=== PATIENT | female | born 1960 | race Caucasian/White ===

== ENCOUNTER → 2017-10-27 08:13 | Outpatient (CLI) | payer OTHER, SELFPAY ==
--- NOTE | 2017-10-27 08:30 | MM_ITS ---
MM Dig screening mamm BI w/CAD CAD Screening ORDERING PHYSICIAN : Tyrone Valdez MD PATIENT AGE: 57 years GENDER: Female COMPARISON: Previous mammograms: January 2013, February 2014, February and January 2010 INDICATION: Routine screening patient does take estrogen no new complaints noncontributory family history TECHNIQUE: Standard CC and MLO images were obtained. R2 CAD reviewed. FINDINGS: moderate breast density bilaterally with no dominant mass nor suspicious calcifications RIGHT BREAST:No significant interval change. Follow-up one year LEFT BREAST:No significant new findings. Follow-up in one year adequate Slight additional density at the central left breast on cc view appear stable since 2013 and even dates back to 2010 & 2009 exam IMPRESSION: Stable bilateral mammogram with no significant new findings. BI-RADS Category: 2 Benign Finding(s) RECOMMENDED FOLLOW-UP: 1YR - 1 YEAR FOLLOW-UP (A letter has been sent to the patient regarding results of the study.)
== END ==
PROVIDERS: Family Provider Internal Medicine Adolescent Medicine; PCP Internal Medicine Adolescent Medicine; Visit Provider Nurse Practitioner Obstetrics & Gynecology
DX: Z12.31 Encounter for screening mammogram for malignant neoplasm of breast (principal)
CPT/HCPCS: 77067

== ENCOUNTER → 2019-04-30 08:31 | Outpatient (CLI) | payer OTHER, SELFPAY | PROVIDERS: PCP Internal Medicine Adolescent Medicine; Visit Provider Nurse Practitioner Family | DX: Z12.31 Encounter for screening mammogram for malignant neoplasm of breast (principal) | CPT/HCPCS: 77067 ==

== ENCOUNTER → 2020-05-20 08:11 | Outpatient (CLI) | payer OTHER, SELFPAY ==
--- NOTE | 2020-05-20 08:13 | MM_ITS ---
PROCEDURE: MM DIG SCREENING MAMM BI W/CAD Digital Breast Tomosynthesis Included CLINICAL INDICATION: SCREENING There is no personal or family history of breast cancer. COMPARISON: MG DMSB DIG MAMM-SCREEN [place] from 08/16/2016 MG SCBI MM Dig screening mamm BI w/CAD from 10/27/2017 MG DIG MAMM-SCREEN [place] from 04/30/2019 TECHNIQUE: Standard CC and MLO images and 3D Tomosynthesis was obtained. R2 CAD reviewed. FINDINGS: Moderate scattered fibroglandular densities are seen throughout both breasts and the findings are bilateral and symmetrical. There is no new or suspicious lesion in either breast and no suspicious microcalcifications. IMPRESSION: Fibrofatty parenchyma with no suspicious lesions seen BI-RAD Category: 1 Negative FOLLOW-UP: 1YR 1 Year Follow-up (A letter has been sent to the patient regarding results of the study.) Dictated by: Dr. Alphonse Lee MD 05/20/2020 13:10 Dr. Alphonse Lee MD in [place] 05/20/2020 13:10
== END ==
PROVIDERS: PCP Nurse Practitioner Family; Visit Provider Nurse Practitioner Family
DX: Z12.31 Encounter for screening mammogram for malignant neoplasm of breast (principal)
CPT/HCPCS: 77063; 77067

== ENCOUNTER → 2021-05-22 07:50 | Outpatient (CLI) | payer OTHER, SELFPAY ==
--- NOTE | 2021-05-22 07:53 | MM_ITS ---
PROCEDURE: MM DIG SCREENING MAMM BI W/CAD Digital Breast Tomosynthesis Included CLINICAL INDICATION: SCREENING COMPARISON: MG SCBI MM Dig screening mamm BI w/CAD from 10/27/2017 MG DIG MAMM-SCREEN [place] from 04/30/2019 MG MM DIG SCREENING MAMM BI W/CAD from 05/20/2020 TECHNIQUE: Standard CC and MLO images and 3D Tomosynthesis was obtained. R2 CAD reviewed. FINDINGS: The breasts are heterogeneously dense which may obscure small masses. No suspicious appearing mass, malignant-appearing microcalcification, architectural distortion, or skin thickening. IMPRESSION: No evidence of malignancy with no significant change BI-RAD Category: FOLLOW-UP: (A letter has been sent to the patient regarding results of the study.) Dictated by: Tab Masrhall MD 05/28/2021 17:39 Tab Marshall MD in [place] 05/28/2021 17:39
== END ==
PROVIDERS: PCP Nurse Practitioner Family; Visit Provider Nurse Practitioner Family
DX: Z12.31 Encounter for screening mammogram for malignant neoplasm of breast (principal)
CPT/HCPCS: 77063; 77067

== ENCOUNTER → 2021-11-19 10:09 | Outpatient (CLI) | payer OTHER, SELFPAY ==
--- NOTE | 2021-11-19 10:14 | XR_ITS ---
FINAL REPORT CLINICAL HISTORY: swelling and pain of left lower leg post fall this am FINDINGS: LEFT ANKLE: Three views of the left ankle were obtained. There is an oblique mildly displaced fracture of the distal fibula. There is prominent soft tissue swelling over the lateral malleolus up to 1.3 cm. There is an osteophyte along the plantar calcaneus. IMPRESSION: Mildly displaced distal fibular fracture with associated soft tissue swelling. Reviewed, Interpreted and Dictated by Kwesi Hernandez MD Transcribed by Pop Licona Authenticated by Kwesi Hernandez MD on 11/19/2021 11:02:[address] [facility]
--- NOTE | 2021-11-19 10:14 | XR_ITS ---
FINAL REPORT CLINICAL HISTORY: swelling and pain of left lower leg post fall this am FINDINGS: Two views of the left tibia-fibula were obtained. There is a mildly displaced oblique fracture of the distal fibula. There is 6 mm of posterior displacement of the distal fracture fragment. There is prominent soft tissue swelling. IMPRESSION: Displaced oblique fracture of the distal fibula. Reviewed, Interpreted and Dictated by Kwesi Hernandez MD Transcribed by Pop Licona Authenticated by Kwesi Hernandez MD on 11/19/2021 11:02:38 AM [facility]
--- NOTE | 2021-11-19 13:21 | CT_ITS ---
FINAL REPORT CLINICAL HISTORY: ankle fracture, FALL COMPARISON: Plain films from the same day FINDINGS: CT RIGHT ANKLE WITHOUT CONTRAST Technique: Axial images through the right ankle were performed by computed tomography. Sagittal and coronal reconstruction images were performed. This study was performed with techniques to keep radiation doses as low as reasonably achievable (ALARA). Individualized dose reduction techniques using automated exposure control or adjustment of mA and/or kV according to the patient's size were employed. There is an oblique displaced fracture of the distal fibula. There is 7 mm of posterior displacement of the distal fracture fragment. There is a transverse and vertical displaced fracture of the posterior malleolus. There is 6 mm of posterior displacement laterally. Fracture lines extend to the medial malleolus. The mortise is intact. IMPRESSION: Trimalleolar fracture with preservation of the mortise but displacement of the lateral and the posterior malleolar fragments. The medial malleolar and posterior malleolar fractures are not well seen on plain films. Reviewed, Interpreted and Dictated by Kwesi Hernandez MD Transcribed by Pop Licona Authenticated by Kwesi Hernandez MD on 11/19/2021 03:59:[address] [facility]
== END ==
PROVIDERS: PCP Nurse Practitioner Family; Visit Provider Nurse Practitioner Family
DX: M25.572 Pain in left ankle and joints of left foot (principal); G89.11 Acute pain due to trauma
CPT/HCPCS: 73590; 73610; 73700

== ENCOUNTER → 2021-11-21 11:10 | Outpatient (CLI) | payer OTHER, SELFPAY ==
[2021-11-21 11:40] LABS: Basophils # 0.1 K/mm3 (0-0.2); Basophils % 0.6 % (0.1-2.0); Eosinophils # 0.2 K/mm3 (0.0-0.4); Eosinophils % 2.7 % (0.1-12.0); Hematocrit 46.4 % (37.0-47.0); Hemoglobin 15.2 g/dL (12.2-16.2); Lymphocytes # 2.9 K/mm3 (0.7-4.5); Lymphocytes % 32.4 % (10-50); Mean Corpuscular HGB Conc 32.7 g/dL (31.8-35.4); Mean Corpuscular Hemoglobin 28.6 pg (27.0-31.2); Mean Corpuscular Volume 87.4 fl (81-99); Mean Platelet Volume 7.7 fl (7.4-10.4); Monocytes # 0.5 K/mm3 (0.1-1.0); Monocytes % 6.1 % (1.7-9.3); Neutrophils # 5.1 K/mm3 (1.8-7.8); Neutrophils % 58.3 % (37.0-80.0); Platelet Count 371 K/mm3 (142-424); Red Cell Distribution Width 13.3 % (11.5-17.5); White Blood Count 8.8 K/mm3 (4.8-10.8)
--- NOTE | 2021-11-21 11:49 | ECG_ITS ---
APPROVED REPORT Exam: Resting ECG HR:88 bpm ECG Measurements Heart Rate 88 AXES ME 134 P 82 QRSd 85 QRS 86 QT 340 T 56 QTc 386 Conclusion SINUS RHYTHM POSSIBLE LEFT ATRIAL ENLARGEMENT [-0.1mV P-WAVE IN V1/V2] BORDERLINE ECG UNCONFIRMED REPORT Electronically signed by : Carmelo Ayala MD 11/21/2021 18:38:42
[2021-11-21 12:03] LABS: Chloride 104 mmol/L (98-107); Potassium 4.4 mmoL/L (3.5-5.1); Sodium 138 mmol/L (136-145)
[2021-11-21 12:06] LABS: Anion Gap 11.4 mEq/L (5-15); Blood Urea Nitrogen 13 mg/dl (7-17); Carbon Dioxide 27 mmol/L (22.0-30.0); Estimated Glomerular Filt Rate 73 ml/min (>60); GFR (African American) 89 ML/MIN (>60)
[2021-11-21 12:07] LABS: Calcium 9.9 mg/dl (8.4-10.2); Glucose 92 mg/dl (74-100)
== END ==
PROVIDERS: PCP Internal Medicine Adolescent Medicine; Referring Provider Orthopaedic Surgery; Visit Provider Orthopaedic Surgery
DX: Z01.812 Encounter for preprocedural laboratory examination (principal); Z11.52 Encounter for screening for COVID-19; S82.839A Other fracture of upper and lower end of unspecified fibula, initial encounter for closed fracture
CPT/HCPCS: 80048; 85025; 93005; C9803; U0003; U0005

== ENCOUNTER 2021-11-23 13:10 | Day surgery (SDC) | payer OTHER, SELFPAY ==
[2021-11-20 12:02] VITALS: BMI 25.8
[2021-11-23] VITALS (11 sets, daily range): BP systolic 104–144; BP diastolic 54–88; PULSE 79–124; RESP 14–18; TEMP 36.6–43; O2SAT 92–99
--- NOTE | 2021-11-23 16:28 | HMH.ANESCL ---
[facility] Anesthesia Checklist - Patient Identification Patient Identification: Arm Band - Structural Data Admitted From: Home Planned Operative Procedure/s: ORIF Left Ankle Consent for Planned Operative Procedure(s) Verified: Yes Verified Documents: Surgical Consent, History and Physical - NPO Status Verified Time NPO: 00:00 - Additional verifications Anesthesia Reactions: No Hx Blood Transfusions: No Blood Transfusion Reaction: No - Airway Assessment C-Spine Mobility Assessed: Yes (mp2) TMJ Mobility Assessed: Yes Dentition: Good Dentition - Neurological Assessment Level of Consciousness: Awake, Alert - Anesthesia Plan Anesthesia Risk discussed: Yes Anesthesia Plan: Verified ASA Class: I Anesthesia Type: General [facility] History I have reviewed the patient's past medical history: Yes Medical History: Denies:: Cancer, Diabetes Mellitus Type 1, Diabetes Mellitus Type 2, Internal Pacemaker, MRSA, Seizures *Have you ever received a pneumonia vaccine?: No *Have you received a flu vaccine this season?: Yes Other Medical History: Denies: Blood Transfusion Reaction Anesthesia experience/problems:: nac Laterality Cases: Bilateral: Other Other Surgeries: Yes: , Other ( 1992). No: Pacemaker Amputation: No Fractures: No - *Social History Last grade of school completed: High school graduate Smoking Status: Never smoker Alcohol Intake: never Substance Use Type: denies use *Occupational Status:: employed Housing: house Household Members: spouse *Travel in the last 8 weeks: None Family Hx:: Cancer
--- NOTE | 2021-11-23 18:55 | XR_ITS ---
FINAL REPORT CLINICAL HISTORY: LEFT ANKLE ORIF USING C-ARM GUIDANCE FINDINGS: FLUOROSCOPY LESS THAN 1 HOUR PROCEDURE: CT guided ORIF of the left ankle. Four spot films were obtained. Please see operative report. Reviewed, Interpreted and Dictated by Mars Gonzalez III, MD Transcribed by Courtney Yadav Authenticated by Mars Gonzalez III, MD on 11/24/2021 03:04:[address] [facility]
--- NOTE | 2021-11-23 19:29 | HMH.ANESI ---
[facility] Anesthesia Record Part I Intake, IV Amount: 2,000 Estimated blood loss (mL): 10 Urine output (mL): 0 Blood Pressure: 104/62 SaO2: 92 Pulse Rate: 79 Respiratory Rate: 16 Temperature: 97.9 F Patient is:: Drowsy, Stable Stable to PACU at:: 19:25
--- NOTE | 2021-11-23 19:52 | SUR.PHASEI ---
1952- detailed report given to nereida otero in post op. pt in stable condition
--- NOTE | 2021-11-23 20:22 | HMH.OPNOTE ---
Date of procedure: 11/23/21 Pre-op Diagnosis:: Closed, comminuted, displaced trimalleolar fracture, left ankle Post-op Diagnosis:: Same Procedure performed:: Open reduction and internal fixation, left ankle Surgeon:: Deny Casper MD Garbage Collection Supervisor(s):: Kassi Franco PA-C [employer] HISTORY TEACHER:: Benja Atwood Anesthesia: GETA Estimated blood loss (mL): 10 Clinical Note:: Patient is a lhlyn-[id number]-arg female who sustained a closed, comminuted, displaced and unstable trimalleolar fracture of the left ankle following a mechanical fall. Following evaluation in the office including a CT scan of her left ankle, the lateral malleolus and posterior malleolar fractures are displaced whereas the medial malleolar fracture is nondisplaced. Following a detailed discussion about the management options including both the nonoperative and operative, patient elected for surgical remediation. Surgery is indicated to anatomically reduce and stabilize the fractures in order to relieve the pain and restore/improve the function. Please refer to my office note for full details. Operative findings:: Preoperative imaging findings and diagnosis correlate with the intraoperative findings. There is a displaced Le B type lateral malleolus fracture with comminution and a nondisplaced fracture of the medial malleolus. There is a large displaced posterior malleolus fracture fragments; the posterolateral fragment is a large Volkmann fragment and is displaced superiorly. The posterior medial fragment is part of the comminuted medial malleolus/distal tibia fracture and is nondisplaced. There is no talar shift. The inferior tibiofibular syndesmosis is stable and therefore did not need fixation. Following fixation the fractures, the ankle joint and inferior tibiofibular syndesmosis are noted to be stable. Operative note:: On the day of surgery patient and her family were met in the preoperative area and positively identified. I again reviewed the clinical and imaging findings, diagnosis, management options including both nonsurgical and surgical and the expected results. Given the clinical and radiological findings, I have recommended an open reduction and internal fixation of the distal fibula fracture and posterior malleolar fracture with or without stabilization of the syndesmosis as needed intraoperatively. We've outlined where the incisions would be made on the skin. Risks of surgery discussed include but are not limited to- infection, injury to nerves and blood vessels, injury to tendons, compartment syndrome, DVT/PE, malunion, nonunion, stiffness, CRPS (complex regional pain syndrome- pain, sensory and temperature changes, swelling and stiffness), painful hardware, loss of fixation, arthritis, incomplete relief of pain, incomplete return of function, and likely need for further surgery in future and also the risks of anesthesia including heart attack, stroke, and . We've discussed how there is a small but real possibility of loss of use of the leg, loss of the leg or loss of life itself. We've also explained how additional surgery may be required and specifically discussed about the likely need for syndesmosis screw removal prior to weight bearing. We explained the weight bearing status, immobilization required, the likely need for physical therapy, the possibility of stiffness, chronic pain and we've also discussed the option of nonsurgical treatment. The patient expressed full understanding and asked appropriate questions. All the questions were answered by me and patient verbalized a good understanding. She wished to proceed with surgery as planned. A physical examination was performed and documented. The limb was marked and the consent form was reviewed and signed. Patient understood the risks, agreed to proceed with surgery, signed the consent form and no guarantees or assurances were given or implied. The patient was brought to the operating room, placed supine on the operating table, and
--- NOTE | 2021-11-25 07:19 | HMH.ANESII ---
[facility] Anesthesia Record Part II Discharge Time: 19:55 Destination: [facility] PACU nurse assessment reviewed?: Yes Patient Condition:: Good Anesthesia Complications:: None NONE Swallowing reflex intact?: Yes Cyanosis?: No Blood Pressure: 119/61 Pulse Rate: 102 Temperature: 98.0 F Mental Status: Alert & Oriented Pain level:: 0 Nausea and/or vomitting:: None Intake, IV Amount: 0
[2021-11-25 07:20] VITALS: BP 119/61; PULSE 102; TEMP 36.7
== END 2021-11-23 20:48 | disposition home or self-care (01) ==
LOC: OR 13:12
PROVIDERS: PCP Nurse Practitioner Family; Visit Provider Orthopaedic Surgery
PROC: (CPT 27822; principal; 2021-11-23 12:30)
DX: S82.852A Displaced trimalleolar fracture of left lower leg, initial encounter for closed fracture (principal); W00.0XXA Fall on same level due to ice and snow, initial encounter; Y92.018 Other place in single-family (private) house as the place of occurrence of the external cause
CPT/HCPCS: 27822; 73600; 96374; C1713; C1776; J2405; J2710

== ENCOUNTER → 2021-12-01 09:30 | Outpatient (CLI) | payer OTHER, SELFPAY ==
--- NOTE | 2021-12-01 09:35 | XR_ITS ---
FINAL REPORT CLINICAL HISTORY: left ankle fx 2 weeks ago..pain COMPARISON: November 19, 2021 FINDINGS: LEFT ANKLE Three views were obtained. There are fractures of the distal tibia and fibula with interval postoperative changes from ORIF. There are screw plates with multiple screws. Small calcaneal spurs are seen. IMPRESSION: Distal tibia and fibula fractures with interval postoperative changes. Reviewed, Interpreted and Dictated by Mars Gonzalez III, MD Transcribed by Michelle Walker Authenticated by Mars Gonzalez III, MD on 12/01/2021 11:08:44 AM [facility]
== END ==
PROVIDERS: PCP Internal Medicine Adolescent Medicine; Visit Provider Orthopaedic Surgery
DX: S82.852A Displaced trimalleolar fracture of left lower leg, initial encounter for closed fracture (principal); S99.912A Unspecified injury of left ankle, initial encounter
CPT/HCPCS: 73610

== ENCOUNTER 2021-12-08 14:12 | Outpatient (RCR) | payer OTHER, SELFPAY | END 2021-12-08 15:00 | disposition home or self-care (01) | LOC: PT 14:12 | PROVIDERS: Visit Provider Orthopaedic Surgery | DX: S99.912A Unspecified injury of left ankle, initial encounter (principal); S82.852A Displaced trimalleolar fracture of left lower leg, initial encounter for closed fracture | CPT/HCPCS: 97760 ==

== ENCOUNTER → 2021-12-24 08:32 | Outpatient (CLI) | payer OTHER, SELFPAY ==
--- NOTE | 2021-12-24 08:36 | XR_ITS ---
FINAL REPORT CLINICAL HISTORY: ankle fracture lt f/u COMPARISON: December 01, 2021 FINDINGS: LEFT ANKLE: Three views of the left ankle were obtained. The overlying cast has been removed. There are postoperative changes from ORIF of the distal tibia and fibula. The hardware is stable. There are mild degenerative changes. Calcaneal spurs are present. IMPRESSION: Postoperative changes, stable. Authenticated by Mars Gonzalez III, MD on 12/24/2021 09:57:41 AM [facility]
== END ==
PROVIDERS: PCP Nurse Practitioner Family; Visit Provider Physician Assistant Surgical
DX: S82.892A Other fracture of left lower leg, initial encounter for closed fracture (principal)
CPT/HCPCS: 73610

== ENCOUNTER → 2022-01-07 08:30 | Outpatient (CLI) | payer OTHER, SELFPAY ==
--- NOTE | 2022-01-07 08:42 | XR_ITS ---
FINAL REPORT CLINICAL HISTORY: orif lt ankle COMPARISON: December 24, 2021 FINDINGS: LEFT ANKLE: Three views of the left ankle were obtained. There is a sideplate and screws securing the distal fibula. There is a sideplate and screws securing the posterior distal tibia. The joint spaces and mortise are intact. There is mild soft tissue swelling about the ankle. IMPRESSION: Postoperative changes with soft tissue swelling. Reviewed, Interpreted and Dictated by Kwesi Hernandez MD Transcribed by Pop Licona Authenticated by Kwesi Hernandez MD on 01/07/2022 10:30:27 AM [facility]
== END ==
PROVIDERS: Visit Provider Physician Assistant Surgical
DX: Z09 Encounter for follow-up examination after completed treatment for conditions other than malignant neoplasm (principal); S82.852D Displaced trimalleolar fracture of left lower leg, subsequent encounter for closed fracture with routine healing
CPT/HCPCS: 73610

== ENCOUNTER → 2022-02-04 08:41 | Outpatient (CLI) | payer OTHER, SELFPAY ==
--- NOTE | 2022-02-04 08:45 | XR_ITS ---
FINAL REPORT CLINICAL HISTORY: orif lt ankle post op COMPARISON: January 07, 2022 FINDINGS: LEFT ANKLE: Three views of the left ankle were obtained. There are postoperative changes again noted in the distal tibia and fibula. Screw plates and multiple screws remain in place. There are mild degenerative changes. Calcaneal spurs are noted. There is no soft tissue abnormality. IMPRESSION: Stable postoperative and degenerative changes as above. Reviewed, Interpreted and Dictated by Mars Gonzalez III, MD Transcribed by Brynn Kee Authenticated by Mars Gonzalez III, MD on 02/04/2022 10:20:24 AM [facility]
== END ==
PROVIDERS: PCP Internal Medicine Adolescent Medicine; Visit Provider Orthopaedic Surgery
DX: Z09 Encounter for follow-up examination after completed treatment for conditions other than malignant neoplasm (principal); S82.852D Displaced trimalleolar fracture of left lower leg, subsequent encounter for closed fracture with routine healing; Z98.890 Other specified postprocedural states; Z87.81 Personal history of (healed) traumatic fracture
CPT/HCPCS: 73610

== ENCOUNTER → 2022-02-12 08:44 | Outpatient (CLI) | payer OTHER, SELFPAY ==
--- NOTE | 2022-02-12 08:45 | XR_ITS ---
FINAL REPORT TECHNIQUE: Bone densitometry calculations of the lumbar spine and left hip were obtained. CLINICAL HISTORY: . post menopausal screening FINDINGS: Using L1-4, the bone mineral density of the spine is 0.924 g/cm2, corresponding to T-score of -1.1. Using the left hip, the bone mineral density of the femoral neck is 0.639 g/cm2, corresponding to a T-score of -2.5. NOTE: T-score: Standard deviation compared with peak bone mass of young adult mean. *Following the recommendations of the International Society of Bone Densitometry, classification of hip BMD is based on the lower of two T-scores; total hip or femoral neck. IMPRESSION: Osteoporosis of the proximal left femur with osteopenia of the lumbar spine. Reviewed, Interpreted and Dictated by Mars Gonzalez III, MD Transcribed by Pop Licona Authenticated by Mars Gonzalez III, MD on 02/12/2022 09:52:12 AM [facility]
== END ==
PROVIDERS: PCP Internal Medicine Adolescent Medicine; Visit Provider Orthopaedic Surgery
DX: S82.852A Displaced trimalleolar fracture of left lower leg, initial encounter for closed fracture (principal); Z78.0 Asymptomatic menopausal state
CPT/HCPCS: 77080

== ENCOUNTER → 2022-03-18 08:24 | Outpatient (CLI) | payer OTHER, SELFPAY ==
--- NOTE | 2022-03-18 08:27 | XR_ITS ---
FINAL REPORT CLINICAL HISTORY: fracture follow up COMPARISON: February 04, 2022 FINDINGS: LEFT ANKLE: Three views of the left ankle were obtained. There are postoperative changes of the distal tibia and fibula with screw plates and multiple screws noted. There is mild degenerative change. Calcaneal spurs are noted. There is no soft tissue abnormality. IMPRESSION: Stable postoperative changes as above. Reviewed, Interpreted and Dictated by Mars Gonzalez III, MD Transcribed by Brynn Kee Authenticated and . [facility]
== END ==
PROVIDERS: PCP Internal Medicine Adolescent Medicine; Visit Provider Orthopaedic Surgery
DX: S82.852D Displaced trimalleolar fracture of left lower leg, subsequent encounter for closed fracture with routine healing (principal); Z87.81 Personal history of (healed) traumatic fracture; Z98.890 Other specified postprocedural states
CPT/HCPCS: 73610

== ENCOUNTER → 2022-04-29 08:16 | Outpatient (CLI) | payer OTHER, SELFPAY ==
--- NOTE | 2022-04-29 08:20 | XR_ITS ---
FINAL REPORT CLINICAL HISTORY: ankle fracture COMPARISON: March 18, 2022 FINDINGS: LEFT ANKLE: Three views of the left ankle were obtained. Changes of the distal tibia and fibula with screw plates and multiple screws. There is no acute fracture or dislocation. There are mild degenerative changes. Calcaneal spurs are present. There is no soft tissue abnormality. IMPRESSION: Postoperative change in stable alignment. Reviewed, Interpreted and Dictated by Mars Gonzalez III, MD Transcribed by Pop Licona Authenticated and . [facility]
== END ==
PROVIDERS: PCP Nurse Practitioner Family; Visit Provider Orthopaedic Surgery
DX: Z87.81 Personal history of (healed) traumatic fracture (principal); Z98.890 Other specified postprocedural states
CPT/HCPCS: 73610

== ENCOUNTER → 2022-05-25 07:44 | Outpatient (CLI) | payer OTHER, SELFPAY ==
--- NOTE | 2022-05-25 07:47 | MM_ITS ---
PROCEDURE INFORMATION: Exam: MG Bilateral Screening 3D Mammography Exam date and time: 05/25/2022 7:53 AM Age: 61 years old Clinical indication: Screening examination. No family history of breast cancer. TECHNIQUE: Imaging protocol: Bilateral Screening tomosynthesis and 2D mammography including computer-aided detection (CAD) when performed. COMPARISON: 1. MG MM DIG SCREENING MAMM BI W/CAD 05/22/2021 7:58 AM 2. MG MM DIG SCREENING MAMM BI W/CAD 05/20/2020 8:19 AM 3. MG DIG MAMM-SCREEN [place] 04/30/2019 9:01 AM 4. MG SCBI MM Dig screening mamm BI w/CAD 10/27/2017 8:33 AM FINDINGS: MAMMOGRAPHY: Breast composition: The breasts are heterogeneously dense, which may obscure small masses. Mass: None. Architectural distortion: None. Calcifications: No suspicious calcifications. Asymmetric density: None. Skin thickening: None. Axillary adenopathy: None. IMPRESSION: No mammographic evidence of malignancy. Annual screening is recommended unless otherwise clinically indicated. ASSESSMENT: BI-RADS Category 1: Negative
== END ==
PROVIDERS: PCP Nurse Practitioner Family; Visit Provider Nurse Practitioner Family
DX: Z12.31 Encounter for screening mammogram for malignant neoplasm of breast (principal)
CPT/HCPCS: 77063; 77067

== ENCOUNTER → 2023-05-31 07:49 | Outpatient (CLI) | payer BC, SELFPAY ==
--- NOTE | 2023-05-31 07:53 | MM_ITS ---
PROCEDURE INFORMATION: Exam: MG Bilateral Screening 3D Mammography Exam date and time: 05/31/2023 7:44 AM Age: 62 years old Clinical indication: Screening examination; No personal or family history of breast cancer TECHNIQUE: Imaging protocol: Bilateral Screening tomosynthesis and 2D mammography including computer-aided detection (CAD) when performed. COMPARISON: 1. MG MM DIG SCREENING MAMM BI W/CAD 05/25/2022 7:53 AM 2. MG MM DIG SCREENING MAMM BI W/CAD 05/22/2021 7:58 AM FINDINGS: MAMMOGRAPHY: Breast composition: There are scattered areas of fibroglandular density. Mass: None. Architectural distortion: None. Calcifications: No suspicious calcifications. Asymmetric density: None. Skin thickening: None. Axillary adenopathy: None. IMPRESSION: No mammographic evidence of malignancy. Annual screening is recommended unless otherwise clinically indicated. ASSESSMENT: BI-RADS Category 1: Negative
== END ==
PROVIDERS: PCP Nurse Practitioner Family; Visit Provider Nurse Practitioner Family
DX: Z12.31 Encounter for screening mammogram for malignant neoplasm of breast (principal)
CPT/HCPCS: 77063; 77067

== ENCOUNTER → 2023-08-09 08:57 | Outpatient (CLI) | payer BC, SELFPAY ==
--- NOTE | 2023-08-09 09:02 | XR_ITS ---
FINAL REPORT CLINICAL HISTORY: OSTEOPOROSIS FINDINGS: Using L1-4, the bone mineral density of the spine is 1.049 g/cm2, corresponding to T-score of 0.0. Using the left hip, the bone mineral density of the femoral neck is 0.662 g/cm2, corresponding to a T-score of -1.7. Using the right hip, the bone mineral density of the femoral neck is 0.655 g/cm2, corresponding to a T-score of -1.7. IMPRESSION: Diminished bone mineral density of the lumbar spine and bilateral hips consistent with osteopenia. Reviewed, Interpreted and Dictated by Kwesi Hernandez MD Transcribed by Pop Licona Authenticated and [facility]
== END ==
PROVIDERS: PCP Nurse Practitioner Family; Visit Provider Nurse Practitioner Family
DX: E89.2 Postprocedural hypoparathyroidism (principal); M81.0 Age-related osteoporosis without current pathological fracture
CPT/HCPCS: 77080

== ENCOUNTER 2024-06-07 07:56 | Outpatient (CLI) | payer BC, SELFPAY ==
--- NOTE | 2024-06-07 08:04 | MM_ITS ---
PROCEDURE INFORMATION: Exam: MG Bilateral Screening 3D Mammography Exam date and time: 06/07/2024 7:47 AM Age: 63 years old Clinical indication: Screening examination TECHNIQUE: Imaging protocol: Bilateral Screening tomosynthesis and 2D mammography including computer-aided detection (CAD) when performed. COMPARISON: 1. MG MM DIG SCREENING MAMM BI W/CAD 05/31/2023 7:44 AM 2. MG MM DIG SCREENING MAMM BI W/CAD 05/25/2022 7:53 AM FINDINGS: MAMMOGRAPHY: Breast composition: There are scattered areas of fibroglandular density. Mass: None. Architectural distortion: None. Calcifications: No suspicious calcifications. Asymmetric density: None. Skin thickening: None. Axillary adenopathy: None. IMPRESSION: No mammographic evidence of malignancy. Annual screening is recommended unless otherwise clinically indicated. ASSESSMENT: BI-RADS Category 1: Negative.
== END 2024-06-07 23:59 | disposition home or self-care (01) ==
LOC: RAD 07:57
PROVIDERS: PCP Nurse Practitioner Family; Visit Provider Nurse Practitioner
DX: Z12.31 Encounter for screening mammogram for malignant neoplasm of breast (principal)
CPT/HCPCS: 77063; 77067

== ENCOUNTER 2025-07-08 09:03 | Outpatient (CLI) | payer BC, SELFPAY ==
--- NOTE | 2025-07-08 09:07 | XR_ITS ---
FINAL REPORT TECHNIQUE: Bone densitometry calculations of the lumbar spine and bilateral hips were obtained. CLINICAL HISTORY: SCREENING COMPARISON: 08/09/2023 FINDINGS: Using L1-4, the bone mineral density of the spine is 1.040 g/cm2, corresponding to T-score of -0.1 and a Z score of 1.6. This is within the range of normal, and similar to the prior exam of 2022. Using the left hip, the bone mineral density of the femoral neck is 0.697 g/cm2, corresponding to a T-score of -2.0 and a Z-score of -0.9. This is within the range of osteopenia, and similar to the prior exam of 2022. Using the right hip, the bone mineral density of the femoral neck is 0.687 g/cm?, corresponding to a T-score of -1.5 and a Z-score of 0.0. This is within the range of osteopenia, and similar to the prior exam of 2022. NOTE: T-score: Standard deviation compared with peak bone mass of young adult mean. *Following the recommendations of the International Society of Bone densitometry, classification of hip BMD is based on the lower of two T-scores; total hip or femoral neck. IMPRESSION: 1. Bone mineral density of the lumbar spine within the range of normal. 2. Bone mineral density of the bilateral femoral necks within the range of osteopenia. Reviewed, Interpreted and Dictated by Lyla Schmitt MD Transcribed by Erica Yoon Authenticated and [facility]
--- OUTSIDE RECORDS SUMMARY | 2025-07-08 09:10 | XMS_ITS | Encounter Summary ---
Author Organization [facility] Address [address] [place] [address] Care Team Providers Care Supervisor Extrusion Name Role Phone Carmelo Ayala MD Primary Care Provider [phone] Kristen Uribe Unavailable [phone] Gregoria Ricci MD Unavailable Deja Mcduffie RN Unavailable [phone] Encounter Details Date Type Department Care Team (Late st Contact Info) Description 09/23/2020 Legacy OTTR Encounter Historical OTTR [address] [place] [address] TobinAna [place] [id number] Social History Tobacco Use Types Packs/Day Years Used Date Smoking Tobacco: Never Assessed Comments Unknown Sex and Gender Information Value Date Recorded Sex Assigned at Not on file Legal Sex Female 8:03 PM EDT Gender Identity Not on file Sexual Orientation Not on file documented as of this encounter Miscellaneous Notes * Progress Notes - Kristen Uribe MA - 02/25/2021 11:30 AM EDT Results received for Ms. Uribe Alk Phos Isoenzyme and GGT, saved to ALL DOCs, forwarded to Dr. Spence. * Progress Notes - Kristen Uribe MA - 02/16/2021 10:51 AM EDT Received a message this morning from Ms. Uribe stating that she was told that she would have some orders send over for lab work and they have not been received yet. She ask that they be sent to [facility]. Ms. Uribe had a recent appointment with Dr. Spence and I assumed these labs were for him. Found in AEHR that he had ordered a Alkaline Phosphate Isoenzymes and GGT. I amnot able to print from that medical records system, so I got authorization from Dr. Spence to orderthe labs in [facility] so that I can print and fax over. He approved. Ordered and faxed over order to [facility]. Called and advised Ms. Uribe. She ask me to also email her a copy to [email or web address]. Done. * Progress Notes - Kristen Uribe MA - 02/11/2021 1:31 PM EDT Received 02/02 CT from [facility] - pushed to PACS Note to Ellen for update. * Progress Notes - Ana Rudd - 02/10/2021 1:41 PM EDT Refaxed request for 02/02/21 CT abd to [facility] to please send DICOM formatted disc. * Progress Notes - Kristen Uribe RN - 02/04/2021 2:22 PM EDT Recieved a disk from [facility] that included 06/26/15, 01/2019, 04/11/20 USs of Abdomen, 07/21/2015 MR and 05/21/15 CT Abdomen and Pelvis. Note to Ana: Can you see if they can send us the CT Images from 02/02? They faxed over the results already. Note to Lorin for update. * Progress Notes - Ana Rudd - 02/04/2021 1:12 PM EDT Faxed request to [facility] for 02/02/21 Images/reports * Progress Notes - Emily Dugan MD - 01/30/2021 11:53 AM EDT DOS 02/02/2021 CT Abdomen with IV Contrast 38285 (CPT: 24132 ICD: K76.89 Hepatic Cyst) TBD @ [facility] Pt has [employer] PPO [id number] valid Feb 02 2021 - Mar 04 2021 updating IAuth and nurse. * Progress Notes - Kristen Uribe RN - 01/30/2021 11:19 AM EDT Received a call from [place] stating that he needed an order for an CT Abdomen with IV Contrast and updated pre-auth. Order updated and faxed. URGENT: Note to Andreea: Ms. Uribe's imaging has changed to a CT Abdomen with IV Contrast for Tuesday, 02/02 @ [facility] (CPT: 41677 ICD: K76.89 Hepatic Cyst). * Progress Notes - Kristen Uribe RN - 01/30/2021 10:50 AM EDT Received a phone call yesterday from [facility] Arturo Mendez a arcade technician there, he ask if Ms. Uribe could have a CT Abdomen/Pelvis with 4 phase liver protocol instead of CTA Liver due to cost. He said that the only difference is the type of contrast used and it increases the cost of the imaging by $600. He said that the CT he recommended would provide Dr. Ricci with the necessary information needed to assess her hepatic cysts. I let him know that I would discuss with her and get back to him. Dr. Ricci okay-ed the switch to CT Abdomen/Pelvis with 4 phase liver protocol. Faxed over order Spoke with Breann at who took a message for [place] explaining the above. * Progress Notes - ProviderEmily MD - 01/28/2021 6:45 AM EDT DOS TBD CTA Liver (IDC: K76.89 Hepatic Cysts, CPT: 67351) TBD @ [facility] Pt has [employer] PPO auth # [id number] valid 01/27/2021-02/26/2021 updating IAuth and nurse. * Progress Notes - Emily Dugan MD - 01/27/2021 1:05 PM EDT DOS TBD CTA Liver (IDC: K76.89 Hepatic Cysts, CPT: 54194) TBD @ [facility] Pt has [employer] PPO trk # [id number] pending clinic notes submitted will need to follow up for status. * Progress Notes - Kristen Uribe RN - 01/27/2021 11:46 AM EDT Received the following email from Dr. Ricci: Arnel Peterson, I looked at her labs. She has elevated TB and AP. Her tumor markers and GGT are normal. Dr. Spence saw her and did a workup with labs, which I saw. Looks like he thinks this is Gilbert's syndrome (she is aware). He wanted to see her in follow up, but has not yet. For her cyst, I think a liver protocol CT scan would be okay and then perhaps we can be done following. Have her see Dr. Spence again in follow up for her likely Gilbert's. Spoke with Ms. Uribe, I ask if she had ever had a CT? She said that she hadn't to her knowledge but she would be willing to try. I told her that we would get her scheduled at [facility] and give her a call. Note to Ana for scheduling CTA Liver at [facility] and follow up visit with Dr. Ricci. Can you cancel her from Dr. Ricci's [place] Calendar for tomorrow, please? URGENT: Note to Andreea for pre-auth of Ms. Uribe's CTA Liver at [facility] (IDC: K76.89 Hepatic Cysts, CPT: 99578). She was scheduled for an MRCP on 01/15/21 but did not complete it dueto claustrophobia. DOS TBD, hopefully in the next couple of weeks. Note to Dr. Spence: Ms. Uribe was last seen by you in May and was to follow up with you in4-6 months. I think that we have got all blood work that you have ordered. Those are saved in ALL DOCs. Would you like to have another appointment with her? Should she be scheduled in TXP or in the GI clinic. * Progress Notes - Kristen Uribe RN - 01/26/2021 2:35 PM EDT Called over to [facility] to request images from Ms. Uribe's MRI on 01/15, spoke with Kami who said that she did not complete it due to claustrophobia. Spoke with Ms. Uribe who said she did take the alprazolam that was prescribed and it did not help. I told her that I would discuss this with Dr. Ricci and get back to her. Ms. Uribe did complete her lab work, results saved in ALL DOCs. Note to Dr. Ricci to advise on how to proceed. Should we try MRI with GA? Do you want to see her onWednday without imaging or reschedule when complete? Note to Moises for update * Progress Notes - Kristen Uribe RN - 01/13/2021 5:[address] Ricci approved for me to call in premeds for claustrophobia for Ms. Uribe. Called in protocol alprazolam 0.5 mg tablet, #1 w/ no refills, [facility] Called and advised Ms. Uribe. * Progress Notes - Ana Rudd - 01/01/2021 4:02 PM EDT Faxed lab order to [facility] in [facility]. * Progress Notes - Ana Rudd - 01/01/2021 3:30 PM EDT Ms. Uribe called to let us know that she is scheduled for her MRI on 01/15/21 at [facility]. She would like for me to fax her lab order to [facility] lab for herto have drawn on 01/22/21. U set to request results and images to have ready for her 01/28/21 appt with MG. Note to HEW and RWG: Ms. Uribe asked if she could have something called into the pharmacy for her to take prior to her MRI? Can one of you call her and discuss? * Progress Notes - Ana Rudd - 12/31/2020 3:45 PM EDT Called [facility] , Ms. Uribe has declined to be scheduled at this time and she said she would call them back to sched if she decides to have the test. Called , spoke to Ms. Uribe. She said she did not decline to be scheduled, she just needs to make sure she can have someone with her to drive her. I asked her to please call me and let me know once she is scheduled so I can get her labs that day and also be able to get the results back in time for . She said she would definitly call once sched and knows she has a fu on 01/28/21 w/ Dr. Ricci. * Progress Notes - Ana Rudd - 12/29/2020 12:02 PM EDT Faxed MRCP request to [facility] * Progress Notes - Emily Dugan MD - 12/25/2020 10:22 AM EDT DOS 01/28/2021 MR MRCP without IV Contrast 99681 ICD10 K76.89 to be done @ [facility] Pt has [employer] auth # [id number] valid 01/23/2021- 02/22/2021 updating IAuth and nurse. * Progress Notes - ProviderEmily MD - 12/25/2020 7:31 AM EDT DOS 01/23/2021 MR MRCP without IV Contrast 21636 ICD10 K76.89 to be done @ [facility] Pt has [employer] PPO trk # [id number] case pending will follow of for status. * Progress Notes - Ana Rudd - 12/08/2020 1:58 PM EDT Note to TH for resched precert: 12/2020 (near the end of December) MRCP/Plus Abdomen W W/O Contrast 31849 to be done at [facility] * Progress Notes - Ana Rudd - 12/04/2020 2:19 PM EST Note to HEW and RWG: Called Ms. Uribe to give appt details for 01/28/21 appt. She requests that wehave her images done at [facility] due to it being cheaper for her. Please let me know ifthis is acceptable with Dr. Ricci? * Progress Notes - Tobin Ana Casey - 09/23/2020 11:47 AM EST Mrs. Uribe is scheduled 01/28/2021 [address] [facility] for Pre Surg Liver hepatic cyst 1year f/u Labs/MRCP MRI/MG. Appt information mailed. Confirmation call requested. Note to for precert: 01/28/21 MRCP/Plus Abdomen W W/O Contrast [id number] * Progress Notes - Kristen Uribe - 06/20/2020 11:12 AM EDT Advised patient today that Dr. Spence would like to follow up in 6 months in the GI clinic and thatDr. Ricci would like to follow up in one year from January. Note to Ana for scheduling. * Progress Notes - Kristen Uribe - 06/16/2020 4:12 PM EDT Received Ms. Uribe?s outside lab results ? uploaded in OTTR, to the best of my ability. I couldn?t figure out where to upload Haptoglobin. Saved in ALL DOCs. Sent to Dr. Spence to advise. Per Dr. Spence: All labs look normal. Patient likely have Gilbert's syndrome as I discussed with her last visit. Please advise pt that all labs are normal and have her follow in GI clinic in 6 months. NFU set to advise patient and to get that appointment scheduled for her. * Progress Notes - Kristen Uribe - 06/10/2020 11:37 AM EDT LVM for Rachana letting her know that I was just following up from her appointment with Dr. Spence.I let her know that he wanted lab work on her and that I would email her the orders for her to havethem done locally. I ask for her to give me a call back advising when she had them done so that I could request results. Orders sent. NFU set to follow up in 2 wks if I haven't heard anything. * Progress Notes - Magan Spence MD - 06/09/2020 2:08 PM EDT If she has not done labs yet, please add GGT as well * Progress Notes - Kristen Uribe - 06/05/2020 3:55 PM EDT Ms Uribe sent me a copy of her labs for Dr. Spence's appointment. Uploaded in OTTR, saved in [employer] and Dr. Spence notified. Patient had labs drawn prior to additional labs that Dr. Spence wanted added on. * Progress Notes - Magan Spence MD - 06/03/2020 9:01 PM EDT pt preferably needs ftf visit if hepatology consult is required for pre surgical evaluation. Thanks * Progress Notes - Kristen Uribe - 05/09/2020 8:59 AM EDT Emailed #secure a copy of Ms. Uribe's lab orders to listed email address. * Progress Notes - Emily Dugan MD - 05/08/2020 3:10 PM EDT Patient scheduled as SEMICONDUCTOR DEVELOPMENT TECHNICIAN-Hep Only (not ICE) via TeleHealth on 06/06/2020 0840 w/ Jordy per Dr. Ricci. Patient is Pre Surgical Liver patient w/ hepatic cyst and elevated bili needing Hep consult. Patient will need local labs drawn beforehand. RWG dropping lab orders for TeleHealth appt. Confirmationemail will be sent to [email or web address] reminder sent to Jordy due to the special circumstances. LWB and RWG tagged in note for awareness. Patient should receive confirmation email todayand one day prior to TH appt. * Progress Notes - Kristen Uribe - 05/08/2020 11:[address] Ricci had a TeleHealth appointment today with Ms. Uribe. Sneha wanted to speak with her before proceeding with the MRCP. They discussed MRCP vs meeting with a launch manager. Ms. Uribe wouldlike to be scheduled with a launch manager first to discuss prior to proceeding with imaging. Christine booked hepatology appointment * Progress Notes - Ana Rudd - 05/07/2020 9:46 AM EDT Called , Due to MG being in a TXP, Mrs. Uribe has been moved to 05/08/20 11:40 am Telehealth appt. * Progress Notes - Deja Mcduffie RN - 05/01/2020 12:[address] Ricci would like to see pt. on Tuesday or next week rather than Tuesday. TeleCare visit rescheduled from 12:20pm on 05/05 to 12:40pm on 05/07. Asked pt. to be ready to log on by 12:30pm. Pt. confirmed. Moved appts. in APM. -Note to Ana- can you make sure I did this right and nothing needs to be fixed, and can you also update Dr. Ricci's calendar? Thank you! * Progress Notes - Ana Rudd R - 04/30/2020 1:50 PM EDT Called , spoke to Mrs. Uribe, she could not do the MRCP this morning. She suggested that she get some labs drawn again in a few months and see if her levels were still elevated. I told her I could pass along that request, but if she would like I could set her up with a Telehealth appt w/ Dr. Ricci. She liked that plan. Mrs. Uribe is scheduled for a appt on 05/05/20 12:[address] Ricci. * Progress Notes - Ana Rudd R - 04/30/2020 1:36 PM EDT Called [facility], , spoke to Carina. Mrs. Uribe was scheduled for her MRCP today 04/30/20. She could not complete the test due to claustrophobia. They could not do this particular scan on the open MRI. Mrs. Uribe told them she would like to discuss with MD before rescheduling. Note to HEW and RWG: Should we get her scheduled for an MRPC/MRI w/GA? * Progress Notes - Deja Mcduffie, RN - 04/22/2020 8:53 PM EDT Replacement order in SCM for MRCP without contrast. Faxed to [facility] w/ precert info on cover sheet. -Note to RG for update. -Note to - can you check in w/ [facility] tomorrow AM to make sure this is all they need, and f/u to let Ms. Uribe know she can have MRCP done now? * Progress Notes - Emily Dugan MD - 04/22/2020 10:41 AM EDT Good Morning, I just spoke to [employer] and the rep states that CPT code 78791 does also include family codes 88072 and 24905, so need to change anything with the current authorization. Just let me know if you have any further questions. * Progress Notes - Emily Dugan MD - 04/18/2020 6:51 AM EDT DOS TBD MR Abdomen W MRCP with IV Contrast 96810 dx Hepatic cysts and gallbladder polyp, to be done@ [facility] and Open MRI Pt has [employer] Non Aso auth # [id number] valid 04/17/2020-05/17/2020updating IAuth and nurse. * Progress Notes - Emily Dugan MD - 04/17/2020 1:54 PM EDT DOS TBD MR Abdomen W MRCP with IV Contrast 58257 dx Hepatic cysts and gallbladder polyp, to be done@ [facility] and Open MRI Pt has [employer] Non Aso # case [id number] pending clinic notes submitted and will follow up for status. * Progress Notes - Ana Rudd - 04/17/2020 1:42 PM EDT Called [facility] , spoke to Rosalina. Need to to have the order say w/o as theydo not do w/ contrast. $75.45 was the orellana quote. Note to TH for updated precert: MRCP/Plus Abdomen W/O contrast 75650 * Progress Notes - Ana Rudd - 04/17/2020 1:36 PM EDT Note to TH for precert: TBD MRCP/Plus Abdomen W W/O Contrast 06250 to be done at [facility] and Open MRI * Progress Notes - Deja Mcduffie RN - 04/17/2020 8:46 AM EDT Discussed with Dr. Ricci, who does prefer pt. have MRI/MRCP as soon as possible, okay to use [facility]. Notified patient, who says [facility] is sending the order I faxed them onTuesday back to us d/t problem with wording. -Note to - can you check w/ [facility]? I can correct the order as needed but haven't received anything in the fax or any messages about this. -Note to for update. * Progress Notes - Deja Mcduffie RN - 04/15/2020 4:31 PM EDT Notified pt. of US results, possible plan for MRI/MRCP. She would like order sent to [facility] for pricing. Faxed to . Will talk w/ Dr. Ricci for plan confirmation tomorrow and call to update pt. afterward. * Progress Notes - Deja Mcduffie RN - 04/15/2020 12:05 PM EDT Check back w/ Dr. Ricci for plan. Pt. may need hepatology consult +/- MRI/MRCP. Check CA19.9 when she comes back. * Progress Notes - Kristen Uribe W - 04/14/2020 10:12 AM EDT Note to Dr. Ricci: Ms. Uribe's US has been received and saved in ALL DOCs from 04/11/20. The liver is mildly increased in echotexture suggestive of fatty infiltration. The question the area in the right hepatic lobe described on the 02/16/2019 report could not be identified on the current study. It may have represented mild focal intrahepatic biliary ductal dilatation. No intrahepaticbiliary ductal dilatation is seen. The common bile duct measures 6 mm. * Progress Notes - Deja Mcduffie RN - 04/11/2020 5:13 PM EDT Pt. had US at 12:30pm today at [facility] for workup of bilirubin of 2.1. Spoke w/ Elizabeth at [facility], who says report has not been dictated yet, but will be faxed as soon as it's complete, possibly tonight. Again reminded pt. to report to ER w/ jaundice or other potential symptoms of biliary obstruction. We discussed these symptoms and pt. agreed. -Note to Kristen for update. * Progress Notes - Deja Mcduffie RN - 04/07/2020 10:53 AM EDT Pt. needs ultrasound per Dr. Ricci. Discussed w/ Ms. Uribe, who says her bilirubin has been elevated since 2014, between 1.1-1.7, and she hasn't been able to pay for her most recent ultrasound (02/06/20) yet, which was over $700. Told her that bilirubin of 2.1 on 04/04 is a significant increase, higher than it's been since she started coming to in 2014. Pt. asked whether she can go to [facility] if the cost is more manageable than [facility]. Faxed order to [facility] and asked pt. to call me back once she speaks w/ someone there. Asked her to call us or report to the ER in the meantime if she experiences jaundice, light-colored stools, dark urine, abdominal pain, vomiting, or blood in stool. She agreed to do so. -Note to for update. * Progress Notes - Deja Mcduffie RN - 04/07/2020 9:10 AM EDT Direct and total bilirubin results received from [facility], saved to All Docs and entered in OTTR. Total bilirubin has increased from 1.5 on 03/10 to 2.1 on 04/04. Direct bilirubin mildlyelevated at 0.6 (reference range 0.0-0.4). -Note to Dr. Ricci and Kristen for update. * Progress Notes - Kristen Uribe - 04/03/2020 11:56 AM EDT Spoke with Ms. Uribe this morning, I let her know that her bilirubin was still a bit high and Dr. Ricci would like to get more labs to help determine why it is elevated. She said that she could have them done at [facility] again. She said that she would have them done tomorrow, 04/04. NFU set to get results and follow up with Ms. Uribe * Progress Notes - Kristen Uribe - 03/25/2020 3:43 PM EDT Reviewed labs with Dr. Ricci - Ms. Uribe's bilirubin continues to be slightly elevated with no other corresponding labs. She would like to have a differential added to the bilirubin, conjugated vsunconjugated. Called the [facility] and spoke with Juan Daniel who said that he did not have the specimen any longer. The longest they keep a specimen is for 1 week and her labs were drawn on 03/10/20. - email sent to Dr. Ricci to see how she would like to proceed. * Progress Notes - Kristen Uribe - 03/17/2020 5:01 PM EDT Received Ms. Uribe's labs - uploaded into OTTR - saved in ALL DOCs - [facility] set to follow up with Dr. Ricci when back from vacation. * Progress Notes - TobinAna - 03/17/2020 1:42 PM EDT Pt had labs done at [facility] [phone] last tuesday. Called [phone] and spoketo Juan Daniel, requested results be faxed. * Progress Notes - Deja Mcduffie RN - 02/07/2020 11:59 AM EDT Notified pt. of US results. Advised that Dr. Ricci has reviewed and would like to keep the plan for1 year f/u w/ labs, MRI/MRCP, and visit. She confirmed understanding and will have local labs drawnin 1 month. NFU set to check on results. * Progress Notes - Deja Mcduffie RN - 02/06/2020 12:59 PM EDT Pt. seen in clinic today by Dr. Ricci. Plan is to repeat CMP in 1 month d/t mildly elevated LFTs, f/u in 1 year w/ labs, MRI/MRCP, and visit w/ MG. US report wasn't back before pt. left, is now copied below. Orders in [facility] for 1 year f/u. Handed pt. printed order for February lab draw. -Note to RG for update. -Note to CH to check on local lab draw in 1 month and schedule 1 year f/u. -Note to MG for US report review. REQUESTING PHYSICIAN: CAIN GUERRERO REASON FOR EXAMINATION/PROCEDURE: RAD PDP:Y * Hepatic Cyst, assess for hepatic cysts size and gallbladder polyp EXAMINATION / PROCEDURE: US ABDOMEN LTD RUQ Feb 06 2020 - 10:22; CLINICAL INDICATION: RAD PDP:Y * Hepatic Cyst, assess for hepatic cysts size and gallbladder polyp TECHNIQUE: Multiplanar static and cine leiva scale ultrasound images of the right abdomen were obtained, accompanied by selective color Doppler ultrasound images. COMPARISON: Ultrasound from February 22, 2018 FINDINGS: Grayscale: Liver: Liver contour is smooth. Normal liver echotexture. Previously noted cyst within the liver is again noted. Portal Vein: There is antegrade flow within the main portal vein. Gallbladder: Relatively unchanged 4 mm gallbladder polyp Common Duct: 4 mm Pancreas: The visualized portions of the pancreas appear unremarkable. Right Kidney: Normal in size and echogenicity. Length 10.5 cm. No hydronephrosis or discernible mass. . No obvious calculi. . Free Fluid: No ascites IMPRESSION: Stable gallbladder polyp. Previously demonstrated liver cyst is again noted. No overt enlargement, however, the entirety of the lesion may not have been imaged. No suspicious hepatic mass lesions CRITICAL RESULT: No. COMMUNICATION: Per this written report. Verified by: ELENA MCDONALD M.D. on Feb 06 2020 1:44P Transcribed by: [facility] on Feb 06 2020 1:44P Dictated by: ELENA MCDONALD M.D. on Feb 06 2020 1:29P * Progress Notes - Deja Mcduffie RN - 02/06/2020 9:26 AM EDT Received message from Christine that pt. was upset US was scheduled at [facility]. Her appt. schedule indicates [facility]. Called radiology, spoke w/ Joan. She has worked pt. in at [facility] for 10:30 US. Christine has notified Ms. Uribe. * Progress Notes - Provider, MD Emily - 01/07/2020 7:56 AM EDT DOS 02/06/2020 US Abdomen Limted 33687 Pt has [employer] PPO NPR updating IAuth and nurse. * Progress Notes - Tobin Ana Casey - 11/29/2019 1:21 PM EST Called , LVM/ spoke to , confirmed Mrs. Uribe is scheduled 02/06/20 9am arrival timefor labs/US/SG. Appt sched mailed and emailed [email or web address]. Pt also stated that her insurance was the same. Note to for precert: 02/06/20 US Abdomen Limited [id number] * Progress Notes - Deja Mcduffie RN - 11/23/2019 10:01 AM EST Received call from pt. asking whether she's been scheduled for her January annual appointment. We discussed that Dr. Guerrero has left and that she'll be seeing a different surgeon for f/u this year. Told her that Ana has a note to call her next week for scheduling. She says she's been doing well,no complaints at this time, and will call if she needs anything before her appt. here in January. -Note to CH and RG for update. documented in this encounter Plan of Treatment Not on file documented as of this encounter Procedures Procedure Name Priority Date/Time Associated Diagnosis Comments OTTR LAB RESULTS (MANUAL) Routine 02/19/2021 11:28 AM EDT OTTR LAB RESULTS (MANUAL) Routine 06/12/2020 3:56 PM EDT OTTR LAB RESULTS (MANUAL) Routine 05/29/2020 3:49 PM EDT OTTR LAB RESULTS (MANUAL) Routine 04/04/2020 9:09 AM EDT OTTR LAB RESULTS (MANUAL) Routine 03/10/2020 5:01 PM EDT OTTR LAB RESULTS (MANUAL) Routine 02/06/2020 9:07 AM EDT documented in this encounter Results * OTTR LAB RESULTS (MANUAL) (02/19/2021 11:28 AM EDT) External Gamma Glutamyl Transpeptidase (GGT) 12 IU/L EXTERNAL LAB 02/19/2021 11:2 8 AM EDT Narrative EXTERNAL LAB - 02/25/2021 11:30 AM EDT [facility] Historical Provider LAB BLOOD ORDERABLES Final R esult Performing Organization Address City/[facility]/ZIP Co de Phone Number EXTERNAL LAB * OTTR LAB RESULTS (MANUAL) (06/12/2020 3:56 PM EDT) External Ceruloplasmin (CER) 24.7 mg/dL EXTERNAL LAB External Hepatitis B Surface Antigen (HBSAg) Negative EXTERNAL LAB External Hepatitis B Surface Antibody (HBSAb) negative EXTERNAL LAB External Hepatitis C Antibody (HCV Ab) 0.1 EXTERNAL LAB External Thyroid Stimulating Hormone (TSH) 2.80 uIU/mL EXTERNAL LAB External WBC 7.3 k/uL EXTERNAL LAB External Hemoglobin (Hgb) 13.9 gm/dL EXTERNAL LAB External Hematocrit (Hct) 41.3 % EXTERNAL LAB External Platelet Count (Plt) 305 k/uL EXTERNAL LAB External Direct Boni Negative EXTERNAL LAB 06/12/2020 3:56 PM EDT Narrative EXTERNAL LAB - 06/16/2020 4:04 PM EDT [facility] Historical Provider LAB BLOOD ORDERABLES Final R esult EXTERNAL LAB * OTTR LAB RESULTS (MANUAL) (05/29/2020 3:49 PM EDT) External WBC 7.0 k/uL EXTERNAL LAB External Hemoglobin A1c 14.2 % EXTERNAL LAB External Hematocrit (Hct) 41.5 % EXTERNAL LAB External Platelet Count (Plt) 299 k/uL EXTERNAL LAB External Glucose 81 mg/dL EXTERNAL LAB External BUN 15 mg/dL EXTERNAL LAB External Creatinine Blood 0.7 mg/dL EXTERNAL LAB External Sodium (Na) 135 mmol/L EXTERNAL LAB External Potassium (K) 4.1 mmol/L EXTERNAL LAB External Chloride (Cl) 103 mmol/L EXTERNAL LAB External Carbon Dioxide (CO2) 30 mmol/L EXTERNAL LAB External Calcium (Ca) 10.2 mg/dL EXTERNAL LAB External AST (SGOT) 15 units/L EXTERNAL LAB External ALT (SGPT) 20 units/L EXTERNAL LAB External Alkaline Phosphatase 118 U/L EXTERNAL LAB External Bilirubin Total 1.7 mg/dL EXTERNAL LAB External Total Protein 7.7 g/dL EXTERNAL LAB External Albumin 4.5 g/dL EXTERNAL LAB External Prothrombin Time (PT) 8.9 seconds EXTERNAL LAB External INR - Internormal Ratio 1.02 EXTERNAL LAB External Estimated GFR 91.03 EXTERNAL LAB 05/29/2020 3:49 PM EDT Narrative EXTERNAL LAB - 06/05/2020 3:52 PM EDT [facility] Historical Provider LAB BLOOD ORDERABLES Final R esult EXTERNAL LAB * OTTR LAB RESULTS (MANUAL) (04/04/2020 9:09 AM EDT) External Bilirubin Direct 0.6 mg/dL EXTERNAL LAB External Bilirubin Total 2.1 mg/dL EXTERNAL LAB 04/04/2020 9:09 AM EDT Narrative EXTERNAL LAB - 04/07/2020 9:10 AM EDT [facility] us Historical Provider LAB BLOOD ORDERABLES Final R esult EXTERNAL LAB * OTTR LAB RESULTS (MANUAL) (03/10/2020 5:01 PM EDT) External Glucose 79 mg/dL EXTERNAL LAB External BUN 20 mg/dL EXTERNAL LAB External Creatinine Blood 0.3 mg/dL EXTERNAL LAB External Sodium (Na) 140 mmol/L EXTERNAL LAB External Potassium (K) 4.0 mmol/L EXTERNAL LAB External Chloride (Cl) 100 mmol/L EXTERNAL LAB External Carbon Dioxide (CO2) 28 mmol/L EXTERNAL LAB External Calcium (Ca) 9.9 mg/dL EXTERNAL LAB External AST (SGOT) 18 units/L EXTERNAL LAB External ALT (SGPT) 22 units/L EXTERNAL LAB External Alkaline Phosphatase 115 U/L EXTERNAL LAB External Bilirubin Total 1.5 mg/dL EXTERNAL LAB External Cholesterol 207 mg/dL EXTERNAL LAB External Triglyceride 75 mg/dL EXTERNAL LAB External HDL Cholesterol 80 mg/dL EXTERNAL LAB External LDL Cholesterol 112 mg/dL EXTERNAL LAB External Estimated GFR 242.01 EXTERNAL LAB 03/10/2020 5:01 PM EDT Narrative EXTERNAL LAB - 03/17/2020 5:03 PM EDT [facility] Historical Provider LAB BLOOD ORDERABLES Final R esult EXTERNAL LAB * OTTR LAB RESULTS (MANUAL) (02/06/2020 9:07 AM EDT) External Estimated GFR 71.08 EXTERNAL LAB 02/06/2020 9:07 AM EDT Narrative EXTERNAL LAB - 02/06/2020 10:21 AM EDT Automated LAB Interface Historical Provider LAB BLOOD ORDERABLES Final R esult EXTERNAL LAB documented in this encounter Visit Diagnoses Not on filedocumented in this encounter Care Teams Supervisor Extrusion Relationship Specialty Start Date End Date Carmelo Ayala MD [address] [place] [address] PCP - General 02/06/[address] [place] [address] Surgical Navigator Transplant Surgery 04/26/21 Gregoria Ricci MD [address] [place] [address] Surgeon Transplant Surgery 04/26/21 Deja Mcduffie RN [facility] [address] [place] [address] Surgical Navigator Transplant Surgery 05/15/21 documented as of this encounter
--- OUTSIDE RECORDS SUMMARY | 2025-07-08 09:10 | XMS_ITS | Clinical Summary ---
Author Organization [facility] Address [address] [place] [address] Care Team Providers Care Cavalry Scout Name Role Phone Carmelo Ayala MD Primary Care Provider + [phone] Kristen Uribe Unavailable [phone] Gregoria Ricci MD Unavailable Deja Mcduffie RN Unavailable [phone] Allergies Active Allergy Reactions Criticality Noted Date Comments Oxytetracycline Rash,Other - please document in the comment field Low 02/09/2017 Medications Rizatriptan Benzoate (MAXALT PO) Take 10 mg by mouth if needed. Active valACYclovir (Valtrex) 500 MG tablet Take 1 tablet (500 mg) by mouth if needed. Active alendronate (Fosamax) 70 MG tablet Take 70 mg by mouth 1 (one) time per week. 09/02/2022 Active cetirizine (ZyrTEC) 10 MG tablet Take 1 tablet (10 mg) by mouth 1 (one) time each day if needed. 09/22/2022 Active lisinopril 10 MG tablet Take 1 tablet (10 mg) by mouth 1 (one) time each day. Takes at 5pm 09/23/2022 Active cholecalciferol (Vitamin D3) 25 MCG (1000 UT) tablet Take 1 tablet (1,000 Units) by mouth 1 (one) time each day. Active ascorbic acid (vitamin C) 500 MG tablet Take 1 tablet (500 mg) by mouth 1 (one) time each day. Active valACYclovir (Valtrex) 1 g tablet Take 1 g by mouth if needed. 07/12/2022 Active valACYclovir (Valtrex) 500 MG tablet Take 500 mg by mouth if needed. 02/10/2021 Active Active Problems Problem Noted Date Diagnosed Date Primary hyperparathyroidism 11/03/2022 Overview (11/03/2022): Added automatically from request for surgery [id number] Abnormal LFTs 02/10/2021 05/16/2023 Resolved Problems Problem Noted Date Diagnosed Date Resolved Date S/P parathyroidectomy 12/15/20222024 Immunizations Immunization Administration Dates Next Due TD (adult), 2 Lf tetanus tox oid, preservative free, adsorbed 11/28/1996 Tdap 06/30/2017 Family History Medical History Relation Name Comments COPD Father Hypertension Father Hypertension Mother Uterine cancer Mother Alcohol abuse Other 1 Cirrhosis Other 2 Conversions - Other Other 3 malignan t neoplasm of ovary Relation Name Status Comments Father Mother Other 1 Other 2 Other 3 Social History Tobacco Use Types Packs/Day Years Used Date Smoking Tobacco: Never Smokeless Tobacco: Never Tobacco Cessation:Counseling Given: Not Answered Alcohol Use Standard Drinks/Week Comments No 0 (1 standard drink = 0.6 oz pur e alcohol) PHQ-2 Answer Date Recorded Patient Health Questionnaire-2 Score 0 11/03/2022 PHQ-2A Answer Date Recorded Patient Health Questionnaire-2 Score 0 11/03/2022 Comments No Sex and Gender Information Value Date Recorded Sex Assigned at Not on file Legal Sex Female 8:03 PM EDT Gender Identity Not on file Sexual Orientation Not on file Last Filed Vital Signs Vital Sign Reading Time Taken Comments Blood Pressure 144/88 05/17/2023 12:05 PM EDT Pulse 83 05/17/2023 12:05 PM EDT Temperature 36.3 C (97.3 F) 12/14/2022 10:17 AM EDT Respiratory Rate 12 11/09/2022 9:40 AM EST Oxygen Saturation 97% 11/09/2022 9:40 AM EST Inhaled Oxygen Concentration - - Weight 74.4 kg (164 lb) 05/17/2023 12:05 PM EDT Height 167.6 cm (5' 6 ) 05/17/2023 12:05 PM EDT Body Mass Index 26.47 05/17/2023 12:05 PM EDT Plan of Treatment Health Maintenance Due Date Last Done Comments [facility]-Bone Density Scan 1961 [facility]-HIV Screening 1961 [facility]-Hepatitis C Screening 1961 [facility]-Infant/Child/Adol SDOH Screenings 1961 [facility]- SDOH Screenings 1979 [facility]-Adult SDOH Screenings 1979 [facility]-Pap Smear 1982 [facility]-Cervical Cancer Screening 1991 [facility]-HPV/Cotest 1991 CT Colonography 2006 Colonoscopy 2006 FIT-DNA 2006 FIT 2006 FOBT 2006 Sigmoidoscopy 2006 [facility]-Colorectal Cancer Screening 2006 [facility]-Breast Cancer Screening 2011 [facility]-Pneumococcal Vaccine: 50+ Years (1 of 1 - PCV) 2011 [facility]-Zoster Vaccines (1 of 2) 2011 [facility]-RSV Vaccine: 60+ Years or (1 - Risk 60-74 years 1-dose series) 2021 [facility]-Depression Screening 11/03/2023 11/03/2022 [id number] Vaccine ( season) 2025 10/14/2021, 10/29/2020, 10/01/2020 [facility]-Influenza Vaccine (#1) 2025 [facility]-DTaP,Tdap,and Td Vaccines (2 - Td or Tdap) 06/30/2027 06/30/2017, 11/28/1996 [facility]-Obesity Intervention Completed 023, 12/14/2022, 11/17/2022, Additional history exists HPV Vaccines Aged Out No longer eligi ble based on patient's age to complete this topic [facility]-HIB Vaccines Aged Out No longer e ligible based on patient's age to complete this topic [facility]-Hepatitis A Vaccines Aged Out No longer eligible based on patient's age to complete this topic UKY-IPV Vaccines Aged Out No longer e ligible based on patient's age to complete this topic UKY-Rotavirus Vaccines Aged Out No lo nger eligible based on patient's age to complete this topic Insurance ANTH Care Teams Cavalry Scout Relationship Specialty Start Date End Date Carmelo Ayala MD [address] [place] [address] PCP - General 02/06/21 [place] [address] Surgical Navigator Transplant Surgery 04/26/21 Gregoria Ricci MD [address] [facility] [address] [place] [id number] Surgeon Transplant Surgery 04/26/21 Deja Mcduffie, RN [facility] [address] [place] [address] Surgical Navigator Transplant Surgery 05/15/21
--- OUTSIDE RECORDS SUMMARY | 2025-07-08 09:10 | XMS_ITS | Encounter Summary ---
Author Organization [facility] Address [address] [place] [address] Care Team Providers Care Operator And Truck Driver Name Role Phone Carmelo Ayala MD Primary Care Provider + [phone] Kristen Uribe Unavailable [phone] Gregoria Ricci MD Unavailable Deja Mcduffie RN Unavailable [phone] Encounter Details Date Type Department Care Team (Late st Contact Info) Description 06/06/2020 [facility] Historical OTTR [address] [place] [address] Magan Spence MD [address] [place] [address] Social History Tobacco Use Types Packs/Day Years Used Date Smoking Tobacco: Never Assessed Comments Unknown Sex and Gender Information Value Date Recorded Sex Assigned at Not on file Legal Sex Female 8:03 PM EDT Gender Identity Not on file Sexual Orientation Not on file documented as of this encounter Miscellaneous Notes * Progress Notes - Magan Spence MD - 06/06/2020 4:25 PM EDT 59 yo woman here for initial evaluation of elevated bilirubin diagnosed 3 month ago. Pt has been following with Dr Ricci in surgical clinic for liver cyst and GB polyp, found to have elevated bilirubin. Pt denied any complaints at this time. no abd pain, no h/o jaundice, no changes in urine color, no fever, chills, no meds or FH of liver disease. She does report remote history of microscopic hematuria for which she had a cystoscopy which was normal per pt. She does not drink or smoke.She does not have any symptoms of advanced fibrosis. She was ordered for MRI by Dr Ricci, but pt felt anxious and test was aborted. Reviewing records showed that pt has mainly unconjugated hyperbilirubinemia, D- Bili is 0.6, normal AST/ALT/ALP. Normal INR and plt without evidence of liver fibrosis. US from 01/2020: normal CBD and no mention of biliary dilatation. Since alkaline phosphatase and aminotransferases are normal, the jaundice is less likely due to hepatic injury or biliary tract disease. Will need to r/o hemolysis and inherited disorders of bilirubin metabolism such as Gilbert's disease which is a diagnosis of exclusion and the most likely diagnosis in this case. Jake disease also can cause unconjugated hyperbilirubinemia, but usually much higher bilirubin and low ALP Plan: Check Ceruloplasmin, retic count, LDH, Boni test, haptoglobin and TSH If hemolysis labs come back positive, will refer to hematology. Screen for viral hepatitis B and C ( HBsAB, HBsAg, HCVAb) RTC in 4-6 month or sooner if needed Pt can be followed in GI clinic for abnormal bilirubin documented in this encounter Plan of Treatment Not on file documented as of this encounter Visit Diagnoses Not on filedocumented in this encounter Care Teams Operator And Truck Driver Relationship Specialty Start Date End Date Carmelo Ayala MD [address] [place] [address] PCP - General 02/06/21 [place] [address] Surgical Navigator Transplant Surgery 04/26/21 Gregoria Ricci MD [address] [place] [address] Surgeon Transplant Surgery 04/26/21 Deja Mcduffei, RN [facility] [address] [place] [address] Surgical Navigator Transplant Surgery 05/15/21 documented as of this encounter
--- OUTSIDE RECORDS SUMMARY | 2025-07-08 09:10 | XMS_ITS | Encounter Summary ---
Author Organization [facility] Address [address] [place] [id number] Care Team Providers Care Telecasting Technician Name Role Phone Carmelo Ayala MD Primary Care Provider + [phone] Kristen Uribe Unavailable [phone] Gregoria Ricci MD Unavailable Deja Mcduffie RN Unavailable [phone] Encounter Details Date Type Department Care Team (Late st Contact Info) Description 02/22/2018 [facility] Encounter Historical OTTR [address] [place] [address] Deja Mcduffie, RN [facility] [address] [id number] Social History Tobacco Use Types Packs/Day Years Used Date Smoking Tobacco: Never Assessed Comments Unknown Sex and Gender Information Value Date Recorded Sex Assigned at Not on file Legal Sex Female 8:03 PM EDT Gender Identity Not on file Sexual Orientation Not on file documented as of this encounter Miscellaneous Notes * Progress Notes - Kristen Uribe W - 02/21/2019 11:41 AM EDT Ms. Uribe was seen in clinic today by Dr. Guerrero - POC is to follow up in 1 year with Labs//Yolanda - Dr. Guerrero instructed her to call us if she has any pain and we would perform a HIDA scan - Dr. Guerrero ask that we make sure that they not only assess the hepatic cysts size but assess the gallbladder polyp - Orders in SCM - Note to [facility] for scheduling 1 year follow up * Progress Notes - Kristen Uribe - 02/09/2019 11:05 AM EDT Recieved US report and CD images - Report in ALL DOCs - CD images taken to radiology - To be reviewed at patient's 02/21 appointment with KORI * Progress Notes - Ana Rudd - 02/07/2019 2:08 PM EDT Results faxed from [facility] for 02/06/19 US. Saved in [employer] Social. Faxed request for dicom formatted disc with images to be mailed. Note to [facility] * Progress Notes - Ana Rudd - 01/16/2019 12:04 PM EDT Pt is scheduled for US at [facility] 02/06/19 @ 9am * Progress Notes - Emily Dugan MD - 12/26/2018 12:43 PM EDT DOS 02/21/2019 US abd scheduled at [facility] Pt has [employer] Non Aso [id number], [phone] per IVRNPR updating IAuth and nurse. * Progress Notes - Ana Rudd - 12/26/2018 9:53 AM EDT Pt needs US abd scheduled at [facility] in January. Note to TH for US abd may precert * Progress Notes - Kristen Uribe - 12/20/2018 10:19 AM EDT Ms. Uribe called this morning and ask if we could schedule her US at [email or web address] due to insurance - She told me that she talked with Marni there - Note to [facility] * Progress Notes - Tobin Ana Carmela - 11/24/2018 12:08 PM EST Pt aware of appt on 02/21 8:30 arrival labs/US/KORI Note to TH to precert 02/21 US * Progress Notes - Deja Mcduffie RN - 02/22/2018 12:44 PM EDT Pt. was hypertensive (140/110 manually) in clinic today, advised that she see PCP to discuss. She agreed to do so. * Progress Notes - ProviderEmily MD - 02/22/2018 11:35 AM EDT Pt. seen in clinic today by Dr. Guerrero. Pt. RTC in 1 year w/ labs, US and visit. Note to precert, schedule and notify pt. documented in this encounter Plan of Treatment Not on file documented as of this encounter Procedures Procedure Name Priority Date/Time Associated Diagnosis Comments OTTR LAB RESULTS (MANUAL) Routine 02/21/2019 10:38 AM EDT OTTR LAB RESULTS (MANUAL) Routine 02/22/2018 8:51 AM EDT documented in this encounter Results * OTTR LAB RESULTS (MANUAL) (02/21/2019 10:38 AM EDT) External Estimated GFR 71.08 EXTERNAL LAB 02/21/2019 10:3 8 AM EDT Narrative EXTERNAL LAB - 02/21/2019 12:53 PM EDT Automated LAB Interface us Historical Provider LAB BLOOD ORDERABLES Final R esult EXTERNAL LAB * OTTR LAB RESULTS (MANUAL) (02/22/2018 8:51 AM EDT) External Estimated GFR 66.05 EXTERNAL LAB 02/22/2018 8:51 AM EDT Narrative EXTERNAL LAB - 02/22/2018 10:25 AM EDT Automated LAB Interface us Historical Provider LAB BLOOD ORDERABLES Final R esult Performing Organization Address City/[facility]/ZIP Co de Phone Number EXTERNAL LAB documented in this encounter Visit Diagnoses Not on filedocumented in this encounter Care Teams Telecasting Technician Relationship Specialty Start Date End Date Carmelo Ayala MD [address] [facility] [address] [place] [address] PCP - General 02/06/21 [place] [address] Surgical Navigator Transplant Surgery 04/26/21 Gregoria Ricci MD [address] [facility] [address] [place] [address] Surgeon Transplant Surgery 04/26/21 Deja Mcduffie RN [facility] [address] [place] [address] Surgical Navigator Transplant Surgery 05/15/21 documented as of this encounter
--- OUTSIDE RECORDS SUMMARY | 2025-07-08 09:10 | XMS_ITS | Encounter Summary ---
Author Organization [facility] Address [address] [place] [address] Care Team Providers Care Correctional Probation Officer Name Role Phone Carmelo Ayala MD Primary Care Provider + [phone] Kristen Uribe Unavailable [phone] Gregoria Ricci MD Unavailable Deja Mcduffie RN Unavailable [phone] Encounter Details Date Type Department Care Team (Late st Contact Info) Description 09/02/2016 [facility] Encounter Historical OTTR [address] [place] [address] Provider, Emily [address] [place] [address] Social History Tobacco Use Types Packs/Day Years Used Date Smoking Tobacco: Never Assessed Comments Unknown Sex and Gender Information Value Date Recorded Sex Assigned at Not on file Legal Sex Female 8:03 PM EDT Gender Identity Not on file Sexual Orientation Not on file documented as of this encounter Miscellaneous Notes * Progress Notes - ProviderEmily MD - 08/15/2017 2:37 PM EST Pt. scheduled for 1 year f/u on 02/22; labs in [facility] @ 8:45am, US @ 9:45am (NPO x 8 hours, 9:15am arrival), visit w/ KORI @ 11:20am. Pt. has [employer]; spenser [place] w/ [employer] NPR [id number]. Added precert info to [facility]. Called pt. notified and confirmed appt. Mailed appt. schedule. * Progress Notes - ProviderEmily MD - 02/10/2017 2:28 PM EDT Nurse f/u needed action and outlook calendar reminder set to schedule 1 year f/u labs, US and visit 08/15. * Progress Notes - ProviderEmily MD - 02/09/2017 12:13 PM EDT Pt. seen in clinic today by Dr. Guerrero. Pt. needs f/u w/ labs, US and visit in 1 year. Note to precert, schedule and notify. * Progress Notes - ProviderEmily MD - 09/02/2016 12:37 PM EST Pt. scheduled for f/u on 1 year f/u 02/09/17, labs in clinic @ 8:45am, US @ 10:30am [facility] (NPO x 8 hours, 10:00am arrival), visit w/ Yolanda @ 11:45am. Pt. has [place] primary; per [employer] w/ [employer] pts. ins. is no longer active. Called pt. notified and confirmed appts. andgot her new insurance info. Pt. now has [employer] primary; Per Gayle w/ [facility] community care utilization management for outpt. [phone] US, NPR ref #[id number]. Loaded precert info. to [facility]. Mailed appt. schedule and placed one at front end loader driver. * Progress Notes - Deja Mcduffie, RN - 09/01/2016 7:32 PM EST Orders entered for January 2017 labs, US, and f/u w/ Dr. Guerrero for liver lesion. Note to CT to add precert info, schedule, and notify pt. Pt. had previously asked that we call in September w/ info, but I would like to have this scheduled sooner if she doesn't mind. * Progress Notes - Deja Mcduffie RN - 02/09/2016 3:57 PM EDT Called pt. to relay radiology consensus w/ Dr. Guerrero that US is not concerning. Needs repeat US and clinic visit in 1 yr. Pt. asked for call to schedule in September 2016. Pt. confirmed understanding. * Progress Notes - Deja Mcduffie RN - 01/29/2016 1:[address] Guerrero, US looks ok, but lesion is slightly larger and should be discussed in TB. Added to 02/05 agenda; will call pt. 02/08 w/ consensus. Pt. notified and confrimed understanding. * Progress Notes - Deja Mcduffie RN - 01/28/2016 5:45 PM EDT Pt. had US /. Sending note to KORI to review for POC. * Progress Notes - Deja Mcduffie RN - 01/22/2016 3:11 PM EDT Pt. should receive call w/ estimated out of pocket cost for US w/in 24-48 hrs Marilee per Gladis in pt.accounts. Notified pt. She confirmed understanding. * Progress Notes - Deja Mcduffie RN - 01/20/2016 5:39 PM EDT Pt. called asking about maximum allowable deductible for 5/2 MRI. Told her I'd look into this and call her . documented in this encounter Plan of Treatment Not on file documented as of this encounter Procedures Procedure Name Priority Date/Time Associated Diagnosis Comments OTTR LAB RESULTS (MANUAL) Routine 02/09/2017 9:13 AM EDT documented in this encounter Results * OTTR LAB RESULTS (MANUAL) (02/09/2017 9:13 AM EDT) External Estimated GFR 68.22 EXTERNAL LAB 02/09/2017 9:13 AM EDT Narrative EXTERNAL LAB - 02/09/2017 10:34 AM EDT Automated LAB Interface us Historical Provider LAB BLOOD ORDERABLES Final R esult EXTERNAL LAB documented in this encounter Visit Diagnoses Not on filedocumented in this encounter Care Teams Correctional Probation Officer Relationship Specialty Start Date End Date Carmelo Ayala MD [address] [place] [address] PCP - General 02/06/21 [place] [address] Surgical Navigator Transplant Surgery 04/26/21 Gregoria Ricci MD [address] [place] [address] Surgeon Transplant Surgery 04/26/21 Deja Mcduffie, RN [facility] [address] [place] [address] Surgical Navigator Transplant Surgery 05/15/21 documented as of this encounter
== END 2025-07-08 23:59 | disposition home or self-care (01) ==
LOC: RAD 09:04
PROVIDERS: PCP Nurse Practitioner Family; Visit Provider Nurse Practitioner Family
DX: Z13.820 Encounter for screening for osteoporosis (principal); M85.88 Other specified disorders of bone density and structure, other site
CPT/HCPCS: 77080

== ENCOUNTER 2025-07-23 07:59 | Outpatient (CLI) | payer BC, SELFPAY ==
--- NOTE | 2025-07-23 08:01 | MM_ITS ---
PROCEDURE INFORMATION: Exam: MG Bilateral Screening 3D Mammography Exam date and time: 07/23/2025 7:59 AM Age: 64 years old Clinical indication: Screening. No family history of breast cancer. TECHNIQUE: Imaging protocol: Bilateral Screening tomosynthesis and 2D mammography including computer-aided detection (CAD) when performed. COMPARISON: 1. MG MM DIG SCREENING MAMM BI W/CAD 06/07/2024 7:47 AM 2. MG MM DIG SCREENING MAMM BI W/CAD 05/31/2023 7:44 AM 3. MG MM DIG SCREENING MAMM BI W/CAD 05/25/2022 7:53 AM 4. MG MM DIG SCREENING MAMM BI W/CAD 05/22/2021 7:58 AM FINDINGS: MAMMOGRAPHY: Breast composition: There are scattered areas of fibroglandular density. Mass: None. Architectural distortion: None. Calcifications: No suspicious calcifications. Asymmetric density: None. Skin thickening: None. Axillary adenopathy: None. IMPRESSION: No mammographic evidence of malignancy. Annual screening is recommended unless otherwise clinically indicated. ASSESSMENT: BI-RADS Category 1: Negative.
--- OUTSIDE RECORDS SUMMARY | 2025-07-23 08:01 | XMS_ITS | Encounter Summary ---
Author Organization [facility] Address [address] [place] [address] Care Team Providers Care Milk Vendor Name Role Phone Carmelo Ayala MD Primary Care Provider + [phone] Kristen Uribe Unavailable [phone] Gregoria Ricci MD Unavailable Deja Mcduffie RN Unavailable [phone] Encounter Details Date Type Department Care Team (Late st Contact Info) Description 06/06/2020 [facility] OTTR Committee Historical OTTR [address] [place] [address] Magan Spence MD [address] [place] [address] Social History Tobacco Use Types Packs/Day Years [...] on filedocumented in this encounter Care Teams Milk Vendor Relationship Specialty Start Date End Date Carmelo Ayala MD [address] [place] [address] PCP - General 02/06/21 [place] [address] Surgical Navigator Transplant Surgery 04/26/21 Gregoria Ricci MD [address] [place] [address] Surgeon Transplant Surgery 04/26/21 Deja Mcduffie, RN [facility] [address] [place] [address] Surgical Navigator Transplant Surgery 05/15/21 documented as of this encounter
--- OUTSIDE RECORDS SUMMARY | 2025-07-23 08:01 | XMS_ITS | Encounter Summary ---
Author Organization [facility] Address [address] [place] [address] Care Team Providers Care Library Paraprofessional Name Role Phone Carmelo Ayala MD Primary Care Provider + [phone] Kristen Uribe Unavailable [phone] Gregoria Ricci MD Unavailable Deja Mcduffie RN Unavailable [phone] Encounter Details Date Type Department Care Team (Late st Contact Info) Description 09/23/2020 [facility] OTTR Encounter Historical OTTR [address] [place] [address] [place] [id number] Social History Tobacco Use Types Packs/Day Years [...] She ask that they be sent to [facility]. Ms. Uribe had a recent appointment with Dr. Spence and I assumed theselabs were for him. Found in AEHR that he had ordered a Alkaline Phosphate Isoenzymes and GGT. I am not able to print from that medical records system, so I got authorization from Dr. Spence to order the labs in [facility] so that I can print and fax over. He approved. Ordered and faxed over order to [facility]. Called and advised Ms. Uribe. She ask me to also email her a copy to [email or web address]. Done. * Progress Notes - Kristen Uribe MA - 02/11/2021 1:31 PM EDT Received 02/02 CT from [facility] - pushed to PACS Note to Ellen for update. * Progress Notes - Ana Rudd - 02/10/2021 1:41 PM EDT Refaxed request for 02/02/21 CT abd to [facility] to please send DICOM formatted disc. * Progress Notes - Kristen Uribe RN - 02/04/2021 2:22 PM EDT Recieved a disk from [facility] that included 06/26/15, 01/2019, 04/11/20 USs of Abdomen, 07/21/2015 MR and 05/21/15 CT Abdomen and Pelvis. Note to Ana: Can you see if they can send us the CT Images from 02/02? They faxed over the results already. Note to Lorin for update. * Progress Notes - Ana Rudd - 02/04/2021 1:12 PM EDT Faxed request to [facility] for 02/02/21 Images/reports * Progress Notes - Emily Dugan MD - 01/30/2021 11:53 AM EDT DOS 02/02/2021 CT Abdomen with IV Contrast 92008 (CPT: 54387 ICD: K76.89 Hepatic Cyst) TBD @ [facility] Pt has [employer] PPO [id number] valid Feb 02 2021 - Mar 04 [...] with IV Contrast for Tuesday, 02/02 @ [facility] (CPT: 80721 ICD: K76.89 Hepatic Cyst). * Progress Notes - Kristen Uribe RN - 01/30/2021 10:50 AM EDT Received a phone call yesterday from [facility] Mendez a diesel truck technician there, he ask if Ms. Uribe [...] her and get back to him. Dr. Rcici okay-ed the switch to CT Abdomen/Pelvis with 4 phase liver protocol. Faxed over order Spoke with Breann at who took a message for [place] explaining the above. * Progress Notes - ProviderEmily MD - 01/28/2021 6:45 AM EDT DOS TBD CTA Liver (IDC: K76.89 Hepatic Cysts, CPT: 54933) TBD @ [facility] Pt has [employer] PPO auth # [id number] valid 01/27/2021-02/26/2021 updating IAuth and nurse. * Progress Notes - ProviderEmily MD - 01/27/2021 1:05 PM EDT DOS TBD CTA Liver (IDC: K76.89 Hepatic Cysts, CPT: 12316) TBD @ [facility] Pt has [employer] PPO trk # [id number] pending clinic notes submitted will need to [...] that we would get her scheduled at [facility] and give her a call. Note to Ana for scheduling CTA Liver at [facility] and follow up visit with Dr. Ricci. Can you cancel her from Dr. Ricci's On[place] Calendar for tomorrow, please? URGENT: Note to Andreea for pre-auth of Ms. Uribe's CTA Liver at [facility] (IDC: K76.89 Hepatic Cysts, CPT: 95671). She was scheduled for an MRCP on [...] 01/26/2021 2:35 PM EDT Called over to [facility] to request images from Ms. Uribe's [...] minutes [facility] Called and advised Ms. Uribe. * Progress Notes - Ana Rudd - 01/01/2021 4:02 PM EDT Faxed lab order to [facility] in [facility]. * Progress Notes - Ana Rudd - 01/01/2021 3:30 PM EDT Ms. Uribe called to let us know that she is scheduled for her MRI on 01/15/21 at [facility]. She would like for me to fax her lab order to [facility] lab for herto have drawn on 01/22/21. [facility] set to request results and images to have ready for her 01/28/21 appt with MG. Note to HEW and RWG: Ms. Uribe asked if she could have something called into the pharmacy for her to take prior to her MRI? Can one of you call her and discuss? * Progress Notes - Ana Rudd - 12/31/2020 3:45 PM EDT Called [facility] , Ms. Uribe has declined to [...] 12:02 PM EDT Faxed MRCP request to [facility] * Progress Notes - Emily Dugan MD - 12/25/2020 10:22 AM EDT DOS 01/28/2021 MR MRCP without IV Contrast 41121 ICD10 K76.89 to be done @ [facility] Pt has [employer] auth # [id number] valid 01/23/2021- 02/22/2021 updating IAuth and nurse. * Progress Notes - ProviderEmily MD - 12/25/2020 7:31 AM EDT DOS 01/23/2021 MR MRCP without IV Contrast 56463 ICD10 K76.89 to be done @ [facility] Pt has [employer] PPO trk # [id number] case pending will follow of for status. * Progress Notes - Ana Rudd - 12/08/2020 1:58 PM EDT Note to TH for resched precert: 12/2020 (near the end of December) MRCP/Plus Abdomen W W/O Contrast 81727 to be done at [facility] * Progress Notes - Ana Rudd - 12/04/2020 2:19 PM EST Note to HEW and RWG: Called Ms. Uribe to give appt details for 01/28/21 appt. She requests that wehave her images done at [facility] due to it being cheaper for her. Please let me know ifthis is acceptable with Dr. Ricci? * Progress Notes - Ana Rudd Carmela - 09/23/2020 11:47 AM EST Mrs. Uribe is scheduled 01/28/2021 [address] [facility] for Pre Surg Liver hepatic cyst 1year f/u Labs/MRCP MRI/MG. Appt information mailed. Confirmation call requested. Note to for precert: 01/28/21 MRCP/Plus Abdomen W W/O Contrast 41972 * Progress Notes - Kristen Uribe - [...] Spence's appointment. Uploaded in OTTR, saved in ALLBloxy and Dr. Spence notified. Patient had labs [...] 05/08/2020 3:10 PM EDT Patient scheduled as [facility]-Hep Only (not ICE) via [facility] on 06/06/2020 0840 w/ Jordy per Dr. Ricci. Patient is Pre Surgical Liver patient w/ hepatic cyst and elevated bili needing Hep consult. Patient will need local labs drawn beforehand. RWG dropping lab orders for [facility] appt. Confirmationemail will be sent to [email or web address]. Onemo reminder sent to Jordy due to the [...] They discussed MRCP vs meeting with a rebeamer. Ms. Uribe wouldlike to be scheduled with a rebeamer first to discuss prior to proceeding with [...] R - 04/30/2020 1:36 PM EDT Called [facility], , spoke to Carina. Mrs. Uribe [...] MRPC/MRI w/[place]? * Progress Notes - Deja Mcduffie RN - 04/22/2020 8:53 PM EDT Replacement order in [facility] for MRCP without contrast. Faxed to [facility] w/ precert info on cover sheet. -Note to RG for update. -Note to - can you check in w/ [facility] tomorrow AM to make sure this is all they need, and f/u to let Ms. Uribe know she can have MRCP done now? * Progress Notes - Emily Dugan MD - 04/22/2020 10:41 AM EDT Good Morning, I just spoke to [employer] and the rep states that CPT code 00816 does also include family codes 18219 and 68528, so need to change anything with the current authorization. Just let me know if you have any further questions. * Progress Notes - Emily Dugan MD - 04/18/2020 6:51 AM EDT DOS TBD MR Abdomen W MRCP with IV Contrast 94970 dx Hepatic cysts and gallbladder polyp, to be done@ [facility] and [facility] Pt has [employer] Non Aso auth # [id number] valid 04/17/2020-05/17/2020updating IAuth and nurse. * Progress Notes - Emily Dugan MD - 04/17/2020 1:54 PM EDT DOS TBD MR Abdomen W MRCP with IV Contrast 78875 dx Hepatic cysts and gallbladder polyp, to be done@ [facility] and [facility] Pt has [employer] Non Aso # case [id number] pending clinic notes submitted and will follow up for status. * Progress Notes - Ana Rudd - 04/17/2020 1:42 PM EDT Called [facility] , spoke to Rosalina. Need to to have the order say w/o as theydo not do w/ contrast. $75.45 was the orellana quote. Note to TH for updated precert: MRCP/Plus Abdomen W/O contrast 40033 * Progress Notes - Ana Rudd - 04/17/2020 1:36 PM EDT Note to TH for precert: TBD MRCP/Plus Abdomen W W/O Contrast 42529 to be done at [facility] and Open MRI * Progress Notes - Deja Mcduffie RN - 04/17/2020 8:46 AM EDT Discussed with Dr. Ricci, who does prefer pt. have MRI/MRCP as soon as possible, okay to use [facility]. Notified patient, who says [facility] is sending the order I faxed them onTuesday back to us d/t problem with wording. -Note to - can you check w/ [facility]? I can correct the order as needed but haven't received anything in the fax or any messages about this. -Note to for update. * Progress Notes - Deja Mcduffie RN - 04/15/2020 4:31 PM EDT Notified pt. of US results, possible plan for MRI/MRCP. She would like order sent to [facility] for pricing. Faxed to . Will [...] Pt. had US at 12:30pm today at [facility] for workup of bilirubin of 2.1. Spoke w/ Elizabeth at [facility], who says report has not been [...] Pt. asked whether she can go to [facility] if the cost is more manageable than [facility]. Faxed order to [facility] and asked pt. to call me [...] Direct and total bilirubin results received from [facility], saved to All Docs and entered in OTTR. Total bilirubin has increased from 1.5 on 03/10 to 2.1 on 04/04. Direct bilirubin mildlyelevated at 0.6 (reference range 0.0-0.4). -Note to Dr. Oconnell for update. * Progress Notes - Kristen Uribe - 04/03/2020 11:56 AM EDT Spoke with Ms. Uribe this morning, I let her know that her bilirubin was still a bit high and Dr. Ricci would like to get more labs to help determine why it is elevated. She said that she could have them done at [facility] again. She said that she would have them done tomorrow, 04/04. [facility] set to get results and follow up with Ms. Uribe * Progress Notes - Kristen Urieb - 03/25/2020 3:43 PM EDT Reviewed labs with Dr. Ricci - Ms. Uribe's bilirubin continues to be slightly elevated with no other corresponding labs. She would like to have a differential added to the bilirubin, conjugated vsunconjugated. Called the [facility] and spoke with Juan Daniel [...] PM EDT Pt had labs done at [facility] [phone] last tuesday. Called [phone] and spoketo Juan Daniel, requested results be [...] left, is now copied below. Orders in [facility] for 1 year f/u. Handed pt. printed [...] on Feb 06 2020 1:44P Transcribed by: [facility] on Feb 06 2020 1:44P Dictated by: ELENA MCDONALD M.D. on Feb 06 2020 1:29P * Progress Notes - Deja Mcduffie RN - 02/06/2020 9:26 AM EDT Received message from Christine that pt. was upset US was scheduled at [facility]. Her appt. schedule indicates [facility]. Called radiology, spoke w/ Joan. She has worked pt. in at [facility] for 10:30 US. Christine has notified Ms. Uribe. * Progress Notes - Provider, MD Emily - 01/07/2020 7:56 AM EDT DOS 02/06/2020 US Abdomen Limted [id number] Pt has [employer] PPO NPR updating IAuth and nurse. * Progress Notes - Ana Rudd R - 11/29/2019 1:21 PM EST Called , LVM/ spoke to , confirmed Mrs. Uribe is scheduled 02/06/20 9am arrival timefor labs/US/SG. Appt sched mailed and emailed [email or web address]. Pt also stated that her insurance was the same. Note to for precert: 02/06/20 US Abdomen Limited [id number] * Progress Notes - Deja Mcduffie RN [...] ORDERABLES Final R esult Performing Organization Address City/[facility]/ZIP Co de Phone Number EXTERNAL LAB * [...] on filedocumented in this encounter Care Teams Library Paraprofessional Relationship Specialty Start Date End Date Carmelo Ayala MD [address] [place] [address] PCP - General 02/06/21 [place] [address] Surgical Navigator Transplant Surgery 04/26/21 Gregoria Ricci MD [address] [place] [address] Surgeon Transplant Surgery 04/26/21 Deja Mcduffie RN [facility] [address] [place] [address] Surgical Navigator Transplant Surgery 05/15/21 documented as of this encounter
--- OUTSIDE RECORDS SUMMARY | 2025-07-23 08:01 | XMS_ITS | Encounter Summary ---
Author Organization [facility] Address [address] [place] [id number] Care Team Providers Care Salesperson Sewing Machines Name Role Phone Carmelo Ayala MD Primary Care Provider + [phone] Kristen Uribe Unavailable [phone] Gregoria Ricci MD Unavailable Deja Mcduffie RN Unavailable [phone] Encounter Details Date Type Department Care Team (Late st Contact Info) Description 02/22/2018 [facility] OTTR Encounter Historical OTTR [address] [place] [address] Deja Mcduffie, RN [facility] [address] [place] [id number] Social History Tobacco Use Types Packs/Day Years [...] 02/07/2019 2:08 PM EDT Results faxed from [facility] for 02/06/19 US. Saved in allMachine Talker. Faxed request for dicom formatted disc with images to be mailed. Note to RWG * Progress Notes - Ana Rudd - 01/16/2019 12:04 PM EDT Pt is scheduled for US at [facility] 02/06/19 @ 9am * Progress Notes - Emily Dugan MD - 12/26/2018 12:43 PM EDT DOS 02/21/2019 US abd scheduled at [facility] Pt has [employer] Non Aso [id number], [id number] per IVRNPR updating IAuth and nurse. * Progress Notes - Ana Rudd - 12/26/2018 9:53 AM EDT Pt needs US abd scheduled at [facility] in January. Note to TH for US abd may precert * Progress Notes - Kristen Uribe - 12/20/2018 10:19 AM EDT Ms. Uribe called this morning and ask if we could schedule her US at [facility] due to insurance - She told me [...] ORDERABLES Final R esult Performing Organization Address City/[facility]/ZIP Co de Phone Number EXTERNAL LAB documented in this encounter Visit Diagnoses Not on filedocumented in this encounter Care Teams Salesperson Sewing Machines Relationship Specialty Start Date End Date Carmelo Ayala MD [address] [facility] [address] [place] [address] PCP - General 02/06/21 [place] [address] Surgical Navigator Transplant Surgery 04/26/21 Gregoria Ricci MD [address] [facility] [address] [place] [address] Surgeon Transplant Surgery 04/26/21 Deja Mcduffie RN [facility] [address] [place] [address] Surgical Navigator Transplant Surgery 05/15/21 documented as of this encounter
--- OUTSIDE RECORDS SUMMARY | 2025-07-23 08:01 | XMS_ITS | Encounter Summary ---
Author Organization [facility] Address [address] [place] [address] Care Team Providers Care Trauma Registrar Name Role Phone Carmelo Ayala MD Primary Care Provider + [phone] Kristen Uribe Unavailable [phone] Gregoria Ricci MD Unavailable Deja Mcduffie RN Unavailable [phone] Encounter Details Date Type Department Care Team (Late st Contact Info) Description 09/02/2016 [facility] OTTR Encounter Historical OTTR [address] [place] [address] Provider, Emily [address] [place] [address] Social History Tobacco Use Types Packs/Day [...] 1 year f/u on 02/22; labs in [facility] @ 8:45am, US @ 9:45am (NPO x 8 hours, 9:15am arrival), visit w/ KORI @ 11:20am. Pt. has [employer]; spenser Machado w/ [employer] NPR [id number]. Added precert info to APM. Called pt. [...] visit w/ Yolanda @ 11:45am. Pt. has [employer] primary; per [employer] w/ [employer] pts. ins. is no longer active. Called pt. notified and confirmed appts. andgot her new insurance info. Pt. now has [employer] primary; Per Gayle w/ [facility] community care utilization management for outpt. [phone] US, NPR ref #[id number]. Loaded precert info. to APM. Mailed appt. 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 * Progress Notes - Deja Mcduffie, [...] on filedocumented in this encounter Care Teams Trauma Registrar Relationship Specialty Start Date End Date Carmelo Ayala MD [address] [place] [address] PCP - General 02/06/21 [place] [address] Surgical Navigator Transplant Surgery 04/26/21 Gregoria Ricci MD [address] [place] [address] Surgeon Transplant Surgery 04/26/21 Deja Mcduffie, RN [facility] [address] [place] [address] Surgical Navigator Transplant Surgery 05/15/21 documented as of this encounter
--- OUTSIDE RECORDS SUMMARY | 2025-07-23 08:01 | XMS_ITS | Clinical Summary ---
Author Organization [facility] Address [address] [place] [address] Care Team Providers Care Layout Worker Name Role Phone Carmelo Ayala MD Primary Care Provider + [phone] Kristen Uribe Unavailable [phone] Gregoria Ricci MD Unavailable Deja Mcduffie RN Unavailable [phone] Allergies Active Allergy Reactions Criticality Noted [...] (11/03/2022): Added automatically from request for surgery [id number] Abnormal LFTs 02/10/2021 05/16/2023 Resolved Problems Problem [...] 1-dose series) 2021 [facility]-Depression Screening 11/03/2023 11/03/2022 [id number] Vaccine ( season) 2025 10/14/2021, 10/29/2020, 10/01/2020 [...] complete this topic Insurance ANTH Care Teams Layout Worker Relationship Specialty Start Date End Date Carmelo Ayala MD [address] [place] [address] PCP - General 02/06/21 [place] [address] Surgical Navigator Transplant Surgery 04/26/21 Gregoria Ricci MD [address] [facility] [address] [place] [address] Surgeon Transplant Surgery 04/26/21 Deja Mcduffie, RN [facility] [address] [place] [address] Surgical Navigator Transplant Surgery 05/15/21
== END 2025-07-23 23:59 | disposition home or self-care (01) ==
LOC: RAD 08:00
PROVIDERS: PCP Nurse Practitioner Family; Visit Provider Nurse Practitioner Family
DX: Z12.31 Encounter for screening mammogram for malignant neoplasm of breast (principal); R92.323 Mammographic fibroglandular density, bilateral breasts
CPT/HCPCS: 77063; 77067